=== PATIENT | male | born 1965 | race Caucasian/White ===

== ENCOUNTER 2024-04-07 21:11 | Inpatient (IN) | payer MEDICARE, OTHER, SELFPAY ==
[2024-04-07 21:41] LABS: Arterial Blood Carboxyhemoglob 1.3 % (0-1.5); Blood Gas THB 11.5 g/dl (12-18); Blood O2 Saturation 78.8 % (92-98.5)
[2024-04-07] MEDS ORDERED: CEFTRIAXONE 1000 MG/VIAL ONE (21:47)
[2024-04-07] MEDS ORDERED: DIAZEPAM 10 MG/2 ML INJ SYRINGE ONE (21:48)
[2024-04-07] MEDS ORDERED: NA CHLORIDE 0.9% 1,000 ML ONE (21:48)
--- NOTE | 2024-04-07 22:03 | RAD REPORT ---
EXAMINATION: ONE VIEW CHEST XR CLINICAL INDICATION: Male, 59 years old.COUGH TECHNIQUE: 1 View, AP supine, X-ray of the chest was performed. [id number]. COMPARISON: No prior exam. FINDINGS: Lungs and pleura: Clear lungs. No effusion. Heart and mediastinum: Normal heart size. Unremarkable mediastinal contours. Osseous structures: No acute abnormality. Tubes/lines: Reconstruction plate at the right clavicle. Other: None. IMPRESSION: No acute intrathoracic abnormality.
[2024-04-07 22:04] LABS: PT Prothrombin Time 9.7 SECONDS (9.4-12.5); PTT, Activated Partial Thromb 31.5 SECONDS (24.3-36.9); Protime INR 0.86
[2024-04-07 22:08] LABS: Absolute Basophils 0.1 K/uL (0-0.5); Absolute Lymphocytes (CBC) 0.8 K/uL (0.7-4.9); Absolute Monocytes 0.4 K/uL (0.1-1.3); Absolute Neutrophil 6.8 K/uL (1.8-8.0); Basophils % 0.9 % (0-1.3); Hematocrit 38.6 % (39.6-49.0); Hemoglobin 12.5 g/dL (13.6-17.9); MCH 32.3 pg (27.0-35.0); MCHC 32.5 g/dL (32.0-36.0); MCV 99.3 fL (80-100); MPV 7.4 fL (7.6-11.3); Monocytes % 5.3 % (3.3-12.3); Neutrophils % 83.8 % (41.7-73.7); Nucleated Red Blood Cells % 0.1 % (0-0); Platelets 566 thou/uL (152-406); RBC Red Blood Cell Count 3.88 M/uL (4.33-5.43); Red Cell Distribution Width 12.9 % (12.1-15.2)
[2024-04-07 22:23] LABS: ALT/SGPT 23 U/L (16-61); Albumin 3.5 g/dL (3.4-5.0); Albumin/Globulin Ratio 0.8 (1.1-1.8); Alkaline Phosphatase 215 U/L (45-117); Anion Gap 34.3 mEq/L (5.0-15.0); BUN Blood Urea Nitrogen 35 mg/dL (7-18); Bilirubin Total 0.6 mg/dL (0.2-1.0); Globulin 4.3 g/dL (2.3-3.5); Glomerular Filtration Rate 53 ml/min (=/>90); Glucose Level 778 mg/dL (74-106); Potassium 5.3 mEq/L (3.5-5.1); Protein, Total 7.8 g/dL (6.4-8.2); Sodium Level 126 mEq/L (136-145)
[2024-04-07 22:24] LABS: AST/SGOT < 10 U/L (15-37); BETA HYDROXYBUTYRATE > 4.50 mmol/L (0.02-0.27)
[2024-04-07 22:26] LABS: Bicarbonate 8 mEq/L (21-32)
[2024-04-07] MEDS ORDERED: INSULIN REGULAR (HUMAN) 100 UNIT/ML ONE (22:44)
[2024-04-07] MEDS ORDERED: NA CHLORIDE 0.9% 100 ML ONE (22:45)
--- NOTE | 2024-04-07 23:04 | ER ---
Nurse's Notes [facility] Name: Yung Valdes Age: 59 yrs Sex: Male : 1965 Arrival Date: 04/07/2024 Time: 21:11 Bed 6 Private MD: Diagnosis: Type 1 diabetes mellitus with ketoacidosis;Pseudohyponatremia;Acute Kidney Injury, Anemia, Hyperkalemia Presentation: 04/07 21:11 Chief complaint: EMS states: FELL TODAY GETTING OUT THE SHOWER WITH LOC. GENERALIZED jj7 WEAKINESS AND HIGH BLOOD SUGAR. PT DID IV METH 2 DAYS AGO AND HAS NOT EATEN IN 2 DAYS. TOOK HIS 20 UNIT OF INSULIN THIS MORNING. BLOOD SUGAR OVER 600. Coronavirus screen: At this time, the client does not indicate any symptoms associated with coronavirus-19. Ebola Screen: No symptoms or risks identified at this time. Initial Sepsis Screen: Does the patient meet any 2 criteria? HR > 90 bpm. Yes Does the patient have a suspected source of infection? No. Patient's initial sepsis screen is negative. Risk Assessment: Do you want to hurt yourself or someone else? Patient reports no desire to harm self or others. Onset of symptoms was April 07, 2024. Care prior to arrival: Medication(s) given: Normal saline infusion, 500 mL, IV initiated. 18 GA, in the left in the right antecubital area, Glucose check: 600. 21:11 Method Of Arrival: EMS: [place] [id number] 21:11 Acuity: GAVI 3 jj7 Triage Assessment: 21:11 General: Appears in no apparent distress. uncomfortable, ill, emaciated, Behavior is jj7 calm, cooperative, appropriate for age. Pain: Complains of pain in ALL OVER BODY ACHES. Neuro: Reports weakness. Cardiovascular: Rhythm is sinus tachycardia. GI: Reports DECREASED APPETITE. Historical: - Allergies: 21:28 PENICILLINS; jj7 - PMHx: 21:28 Diabetes mellitus; jj7 - PSHx: 21:28 None; jj7 - Infectious Disease History:: Denies. - Social history:: Smoking status: Patient denies any tobacco usage or history of. Patient uses alcohol, weekly. street drugs, Methamphetamine (Meth) IV drugs, METH. Screenin:11 [facility] ED Fall Risk Assessment (Adult) History of falling in the last 3 months, [facility] including since admission Yes- fall prone (multiple falls) (3 pts) Confusion or Disorientation No (0 pts) Intoxicated or Sedated No (0 pts) Impaired Gait No (0 pts) Mobility Assist Device Used No (0 pt) Altered Elimination No (0 pt) Score/Fall Risk Level 3 or more points = High Risk Oriented to surroundings, Maintained a safe environment, Educated pt \T\ family on fall prevention, incl call for assistance when getting out of bed, Assessed \T\ reinforced patient's understanding of fall precautions. Abuse screen: Denies threats or abuse. Nutritional screening: Tuberculosis screening: No symptoms or risk factors identified. Assessment: 21:11 Reassessment: SEE TRIAGE ASSESSMENT. j7 22:00 Reassessment: pt is sleeping. no distress noted Patient states symptoms have improved. j7 23:00 Reassessment: No changes from previously documented assessment. j7 04/08 00:00 Reassessment: No changes from previously documented assessment. j7 01:00 Reassessment: No changes from previously documented assessment. j7 02:10 Reassessment: No changes from previously documented assessment. [facility] Vital Signs: 04/07 21:11 BP 167 / 97; Pulse 116; Resp 23; Temp 97.6; Pulse Ox 100% ; Weight 46.27 kg; Height 5 [facility] ft. 8 in. ; Pain 8/10; 21:57 BP 135 / 72; Pulse 116; Resp 19; Pulse Ox 99% ; j7 22:49 BP 136 / 82; Pulse 111; Resp 17; Pulse Ox 100% ; j7 23:30 BP 137 / 92; Pulse 112; Resp 17; Pulse Ox 100% ; j7 04/08 00:30 BP 162 / 94; Pulse 115; Resp 17; Pulse Ox 98% ; j7 02:00 BP 132 / 81; Pulse 112; Resp 17; Pulse Ox 98% ; j7 04/07 21:11 Body Mass Index 15.51 (46.27 kg, 172.72 cm) [facility] 04/07 21:11 Pain Scale: Adult [facility] ED Course: 04/07 21:11 Patient arrived in ED. rv1 21:11 Arm band placed on right wrist. Patient placed in an exam room, on a stretcher, on jj7 cat and dog bather. 21:11 Patient has correct armband on for positive identification. Allergy band placed. Bed in jj7 low position. Call light in reach. Side rails up X2. Provided Education on: USE OF CALL IZQUIERDO. Warm blanket given. 21:11 Maintain EMS IV. Dressing intact. Good blood return noted. Site clean \T\ dry. Gauge \T\ jj 7 site: 18G TO RIGHT AC. 18G TO LEFT FOREARM. Flushed with 10 mL NS. 21:16 Kodak Nicolas MD is Attending Physician. ec2 21:18 Alicia Soler RN is Primary Nurse. jj7 21:26 Triage completed. jj7 21:37 Inserted saline lock: 20 gauge in left antecubital area, using aseptic technique. Blood sa1 collected. Flushed with 10 mL NS. 21:38 First set of blood cultures drawn by ED staff. jj7 21:51 Blood Culture Adult (2) Sent. jj7 21:51 CBC with Diff Sent. jj7 21:51 CMP Sent. jj7 21:51 Lactate w/ 2H reflex if indic. Sent. jj7 21:51 Protime (+inr) Sent. jj7 21:51 Ptt, Activated Sent. jj7 21:53 Second set of blood cultures drawn by ED staff. jj7 21:57 Chest Single View XRAY In Process Unspecified. EDMS 21:59 Blood Culture Adult (2) Sent. jj7 21:59 CBC with Diff Sent. jj7 21:59 CMP Sent. jj7 21:59 Lactate w/ 2H reflex if indic. Sent. jj7 21:59 Protime (+inr) Sent. jj7 21:59 Ptt, Activated Sent. jj7 22:00 BHB Sent. jj7 23:03 Jered Mederos MD is Hospitalizing Provider. ec2 04/08 00:42 Cleaned of incontinence. Linen changed. jj7 00:43 condom cath applied. jj7 02:24 Patient admitted, IV remains in place. jj7 02:24 No provider procedures requiring assistance completed. jj7 Administered Medications: 04/07 21:59 Drug: NS 0.9% IV (30 ml/kg) 30 ml/kg IV at bolus once; Sepsis Protocol; to be given as jj7 a bolus over 90 minutes Route: IV; Rate: bolus; Site: left upper arm; 22:33 Follow up: Response: No adverse reaction; IV Status: Completed infusion; IV Intake: bm8 1340ml 21:59 Drug: Rocephin IV 1 grams IV at calculated rate once; Given slow IV push per pharmacy j7 instructions Route: IV; Rate: calculated rate; Site: left upper arm; 22:32 Follow up: Response: No adverse reaction; IV Status: Completed infusion; IV Intake: [id number] 22:00 Drug: Diazepam IVP 10 mg IVP once Route: IVP; Site: left upper arm; j 22:32 Follow up: Response: No adverse reaction bm8 22:55 Drug: Insulin Drip - (Insulin Regular Human IVP 100 units, NS 0.9% IV 100 ml) IV at j calculated rate continuous; Standard concentration 1unit/ml; Dose for DKA is 0.1 units/kg/hr {Co-Signature: 8 (Cornelio Godfrey RN).} Route: IV; Rate: calculated rate; Site: left upper arm; 04/08 03:41 Follow up: Response: No adverse reaction; IV Status: Infusion continued upon admission bm8 Medication: 04/07 21:11 VIS not applicable for this client. j7 Point of Care Testing: Blood Glucose: 04/08 02:35 Blood Glucose: 390 mg/dL; bm8 Ranges: Intake: 04/07 22:32 IV: 10ml; Total: 10ml. bm8 22:33 IV: 1340ml; Total: 1350ml. bm8 Outcome: 23:03 Decision to Hospitalize by Provider. ec2 04/08 02:24 Admitted to ICU accompanied by nurse, via stretcher, room 1, Report called to KJ stratton 03:40 Patient left the ED. bm8 03:40 Condition: good jjAlisha Signatures: Dispatcher [employer] Alicia Royal RN RN jj7 Lea Souza rv1 Kodak Nicolas MD MD ec2 Cornelio Godfrey, RN RN [email or web address] [facility] Cornelio Godfrey RN mague Corrections: (The following items were deleted from the chart) 00:22 04/07 22:00 Reassessment: No changes from previously documented assessment. jj7 jj7 04/08 02:15 02:14 BP 132 / 181; Pulse 112bpm; Resp 17bpm; Pulse Ox 98%; jj7 jj7 03:50 02:00 BP 132 / 181; Pulse 112bpm; Resp 17bpm; Pulse Ox 98%; jj7 jj7
--- NOTE | 2024-04-07 23:04 | EDPHYS ---
Physician Documentation [facility] Name: Yung Valdes Age: 59 yrs Sex: Male : 1965 Arrival Date: 04/07/2024 Time: 21:11 Bed 6 Private MD: ED Physician Kodak Nicolas HPI: 04/07 21:43 This 59 yrs old Male presents to ER via EMS with complaints of High Blood ec2 Sugar. 21:43 Patient with history of methamphetamine abuse arrives today with hyperglycemia and ec2 feeling unwell. Called EMS with high blood sugars. Reports that he does take medications however uses meth and passes out and does not take it regularly. No fevers or chills, no cough and cold symptoms.. Historical: - Allergies: 21:28 PENICILLINS; j - PMHx: 21:28 Diabetes mellitus; j7 - PSHx: 21:28 None; jj7 - Infectious Disease History:: Denies. - Social history:: Smoking status: Patient denies any tobacco usage or history of. Patient uses alcohol, weekly. street drugs, Methamphetamine (Meth) IV drugs, METH. ROS: 21:43 Constitutional: as per hpi ec2 Exam: 21:43 Constitutional: GEN: NAD Head: atraumatic Eyes: EOMI Ears: External ears are ec2 normal. CV: Tachycardia LUNGS: Mild tachypnea ABD: non-distended SKIN: no evidence of rashes MSK: no evidence of trauma Vital Signs: 21:11 BP 167 / 97; Pulse 116; Resp 23; Temp 97.6; Pulse Ox 100% ; Weight 46.27 kg; Height 5 jj7 ft. 8 in. ; Pain 8/10; 21:57 BP 135 / 72; Pulse 116; Resp 19; Pulse Ox 99% ; j7 22:49 BP 136 / 82; Pulse 111; Resp 17; Pulse Ox 100% ; j7 23:30 BP 137 / 92; Pulse 112; Resp 17; Pulse Ox 100% ; j7 04/08 00:30 BP 162 / 94; Pulse 115; Resp 17; Pulse Ox 98% ; j7 02:00 BP 132 / 81; Pulse 112; Resp 17; Pulse Ox 98% ; 7 04/07 21:11 Body Mass Index 15.51 (46.27 kg, 172.72 cm) j7 04/07 21:11 Pain Scale: Adult jj7 MDM: 04/07 21:16 Medical Screening Exam initiated ec2 21:37 ED course: EKG independently reviewed and interpreted by me, shows sinus tachycardia, ec2 rate 119, no acute ST segment elevations, intervals are nonactionable.. 21:37 ED course: Venous blood gas obtained, shows acidosis with a pH of 7.17.. ec2 21:43 Data reviewed: vital signs. ED course: Patient arrives today for hyperglycemia. ec2 Examination remarkable for nontoxic individual who is slightly tachycardic and slightly tachypneic. Will obtain a septic workup, empirically treat with ceftriaxone. Differential includes medication noncompliance, electrolyte disturbances, anemia, dehydration.. 22:39 ED course: CBC shows minimal anemia. Metabolic profile shows marked hyperglycemia with ec2 a sugar of 778, pseudohyponatremia noted, significant anion gap at 34. Will start the patient on insulin drip.. 23:03 ED course: Will admit for DKA. Discussed with hospitalist, pending admission. ec2 11 21:17 Order name: Blood Culture Adult (2) ec2 04/07 21:17 Order name: CBC with Diff; Complete Time: 22:39 ec2 04/07 21:17 Order name: CMP; Complete Time: 22:39 ec2 04/07 21:17 Order name: Lactate w/ 2H reflex if indic.; Complete Time: 22:39 ec2 04/07 21:17 Order name: Protime (+inr); Complete Time: 22:39 ec2 04/07 21:17 Order name: Ptt, Activated; Complete Time: 22:39 ec2 04/07 21:17 Order name: Urinalysis w/ reflexes ec2 04/07 21:17 Order name: ABG; Complete Time: 22:39 ec2 04/07 21:17 Order name: BHB; Complete Time: 22:39 ec2 04/07 21:56 Order name: Glucose, Ancillary Testing; Complete Time: 22:39 EDMS 04/07 23:48 Order name: Urinalysis w/ reflexes EDMS 04/07 23:48 Order name: CBC with Automated Diff EDMS 04/07 23:48 Order name: CBC with Automated Diff EDMS 04/07 23:48 Order name: Comprehensive Metabolic Panel EDMS 04/07 23:48 Order name: Comprehensive Metabolic Panel [facility] 04/07 23:48 Order name: Troponin High Sensitivity [facility] 04/07 23:48 Order name: Troponin High Sensitivity [facility] 04/07 23:48 Order name: Troponin High Sensitivity [facility] 04/07 23:48 Order name: Troponin High Sensitivity [facility] 04/07 23:51 Order name: Basic Metabolic Panel [facility] 04/07 23:51 Order name: Basic Metabolic Panel [facility] 04/07 23:51 Order name: Basic Metabolic Panel [facility] 04/07 23:51 Order name: Basic Metabolic Panel [facility] 04/08 00:27 Order name: Ghost Lactate-NO COLLECT Timer [facility] 04/08 01:30 Order name: Lactate Sepsis 2 HR Follow-up [facility] 04/08 02:41 Order name: Glucose, Ancillary Testing [facility] 04/08 03:37 Order name: Glucose, Ancillary Testing [facility] 04/07 21:17 Order name: Chest Single View XRAY; Complete Time: 22:39 ec2 04/07 21:17 Order name: Accucheck; Complete Time: 21:50 ec2 04/07 21:17 Order name: Cardiac monitoring; Complete Time: 21:20 ec2 04/07 21:17 Order name: EKG - Nurse/Tech; Complete Time: 21:59 ec2 04/07 21:17 Order name: IV Saline Lock - Large Bore; Complete Time: 21:51 ec2 04/07 21:17 Order name: Labs collected and sent; Complete Time: 21:51 ec2 04/07 21:17 Order name: O2 Per Protocol; Complete Time: 21:51 ec2 04/07 21:17 Order name: O2 Sat Monitoring; Complete Time: 21:51 ec2 04/07 21:17 Order name: Vital Signs; Complete Time: 21:51 ec2 Administered Medications: 21:59 Drug: NS 0.9% IV (30 ml/kg) 30 ml/kg IV at bolus once; Sepsis Protocol; to be given as jj7 a bolus over 90 minutes Route: IV; Rate: bolus; Site: left upper arm; 22:33 Follow up: Response: No adverse reaction; IV Status: Completed infusion; IV Intake: bm8 1340ml 21:59 Drug: Rocephin IV 1 grams IV at calculated rate once; Given slow IV push per pharmacy jj7 instructions Route: IV; Rate: calculated rate; Site: left upper arm; 22:32 Follow up: Response: No adverse reaction; IV Status: Completed infusion; IV Intake: [id number] 22:00 Drug: Diazepam IVP 10 mg IVP once Route: IVP; Site: left upper arm; jj7 22:32 Follow up: Response: No adverse reaction bm8 22:55 Drug: Insulin Drip - (Insulin Regular Human IVP 100 units, NS 0.9% IV 100 ml) IV at [facility] calculated rate continuous; Standard concentration 1unit/ml; Dose for DKA is 0.1 units/kg/hr {Co-Signature: bm8 (Cornelio Godfrey RN).} Route: IV; Rate: calculated rate; Site: left upper arm; 04/08 03:41 Follow up: Response: No adverse reaction; IV Status: Infusion continued upon admission bm8 Point of Care Testing: Blood Glucose: 02:35 Blood Glucose: 390 mg/dL; bm8 Ranges: Critical Glucose Levels:Adult <50 mg/dl or >400 mg/dl <40 mg/dl or >180 mg/dl Disposition Summary: 04/07/24 23:03 Hospitalization Ordered Notes: Hospitalization Status: Inpatient Admission ec2 Provider: Jered Mederos ec2 Location: Intensive Care Unit ec2 Condition: Fair ec2 Problem: an acute exacerbation ec2 Symptoms: have improved ec2 Bed/Room Type: Standard ec2 Room Assignment: 1-(04/08/24 02:06) rv1 Diagnosis - Type 1 diabetes mellitus with ketoacidosis ec2 - Pseudohyponatremia ec2 - Acute Kidney Injury, Anemia, Hyperkalemia ec2 Forms: - Medication Reconciliation Form ec2 - SBAR form ec2 - Leadership Thank You Letter ec2 Critical care time excluding procedures: 04/07 23:03 Critical care time: Bedside Care: 30 minutes, Consultation: 5 minutes. Total time: 35 ec2 minutes Signatures: Dispatcher [employer] Alicia Royal RN RN jj7 Lea Souza rv1 Kodak Nicolas MD MD ec2 Cornelio Godfrey RN bm8 Cornelio Godfrey RN bm8 Corrections: (The following items were deleted from the chart) 21:17 21:17 BLOOD CULTURE*+BA.LAB.BRZ ordered. NERI HE 21: 21:17 CBC+H.LAB.BRZ ordered. EDMS EDMS 21:17 21:17 COMPREHENSIVE METABOLIC PANEL+C.LAB.BRZ ordered. EDMS EDMS 21: 21:17 LACTATE+C.LAB.BRZ ordered. EDMS EDMS 21:17 21:17 PROTIME (+INR)+COAG.LAB.BRZ ordered. EDMS EDMS 21:17 21:17 PTT, ACTIVATED+COAG.LAB.BRZ ordered. EDMS EDMS 21:17 21:17 Urinalysis+U.LAB.BRZ ordered. EDMS EDMS 21:17 21:17 BETA HYDROXYBUTYRATE+C.LAB.BRZ ordered. EDMS EDMS 21:17 21:17 Chest Single View+RAD.RAD.BRZ ordered. EDMS EDMS 21:17 21:17 Arterial Blood Gas+RC.LAB.BRZ ordered. EDMS EDMS 04/08 02:06 04/07 23:03 ec2 rv1
--- NOTE | 2024-04-07 23:42 | P.HP ---
Certification for Inpatient Patient admitted to: Inpatient With expected LOS: >2 Midnights Practitioner: I am a practitioner with admitting privileges, knowledge of patient current condition, hospital course, and medical plan of care. Services: Services provided to patient in accordance with Admission requirements found in Title 42 Section 412.3 of the Code of Federal Regulations Patient History Date of Service: 04/08/24 Reason for admission: DKA History of Present Illness: 59 yrs old Male with past medical history of diabetes, history of substance abuse with methamphetamine brought to ER with high blood sugar. Patient is a poor historian and most of the history is obtained from chart review and also talking to the ER physician. He was not feeling well today. And he passed out and call 911 because of high blood sugar. Denies any fever or chills. No nausea vomiting or diarrhea. No chest pain or shortness of breath. Patient was assessed in the ER and was found to be in DKA and is admitted for further management of diabetic ketoacidosis Allergies Penicillins Allergy (Unknown, Verified 04/08/24 03:30) Itching/Hives/Rash - Past Medical/Surgical History Past Medical History: Reviewed- Non-Contributory -: DM Past Surgical History: Reviewed- Non-Contributory - Family History Family History: Reviewed- Non-Contributory - Social History Smoking Status: Current some day smoker Review of Systems 10-point ROS is otherwise unremarkable Physical Examination - Vital Signs Temperature: 97.2 F Blood Pressure: 156/78 Pulse: 82 Respirations: 20 Pulse Ox (%): 94 - Physical Exam General: Alert, Oriented x3, Cachectic, Disheveled, Mild distress HEENT: Atraumatic, Normocephalic Neck: Supple, No Thyromegaly Respiratory: Clear to auscultation bilaterally Cardiovascular: Regular rate/rhythm, Normal S1 S2 Capillary refill: <2 Seconds Gastrointestinal: Soft and benign, W/out hepatosplenomegaly Musculoskeletal: No clubbing, No swelling Integumentary: No rashes Neurological: Other (Alert, Awake ) Lymphatics: No axilla or inguinal lymphadenopathy - Studies Laboratory Data (last 24 hrs) 04/07/24 04/07/24 04/07/24 21:38 21:38 21:38 WBC 8.10 Hgb 12.5 L Hct 38.6 L Plt Count 566 H PT 9.7 INR 0.86 APTT 31.5 Sodium 126 L Potassium 5.3 H BUN 35 H Creatinine 1.53 H Glucose 778 H* Total Bilirubin 0.6 AST < 10 L ALT 23 Alkaline Phosphatase 215 H Assessment and Plan - Plan Diabetic ketoacidosis Admit to ICU Started on insulin drip Anion gap monitored ABG findings noted IV hydration aggressively Oxygen supplementation Will monitor BMP every 4 hours Accu-Chek q. hourly Anion gap at the time of admission is 34.3 Will monitor anion gap Electrolytes monitor and replace accordingly ABG shows 7.17/18.6/52.3 Hyperkalemia Aggressive hydration insulin drip Will monitor BMP every 4 hours Monitor under telemetry Acute kidney injury Renal parameters monitored IV hydration Electrolytes monitor and replace accordingly Lactic acidosis Started on antibiotic empirically Will get a UA and cultures Substance abuse Patient has a history of methamphetamine use Will get a UDS GI/DVT prophylaxis Advanced directive full code Discharge Plan: Home Plan to discharge in: 48 Hours - Advance Directives Does patient have a Living Will: No Does patient have a Durable POA for Healthcare: No - Code Status/Comfort Care Code Status: Full Code Time Spent Managing Pts Care (In Minutes): 48
[2024-04-07] MEDS ORDERED: ACETAMINOPHEN 325 MG TABLET PO PRN (23:43)
[2024-04-07] MEDS ORDERED: ONDANSETRON 4 MG/2 ML VIAL IV PRN (23:43)
[2024-04-07] MEDS: D5 0.45 NS 1,000 ML IV SCH (23:45)
[2024-04-08] MEDS: NA CHLORIDE 0.9% 0 ML ONE (03:27)
[2024-04-08] MEDS: NACHLORIDE 0.45% 1,000 ML IV ONE (03:33)
[2024-04-08] MEDS: NACHLORIDE 0.45% 1,000 ML IV SCH (03:45)
[2024-04-08] MEDS: Levofloxacin500mg IV 500 MG/100 ML BAG IV ONE (04:00)
[2024-04-08] MEDS ORDERED: D50W 25 GM/50 ML SYRINGE IV PRN (04:25)
[2024-04-08] MEDS ORDERED: GLUCAGON 1 MG/VIAL IM PRN (04:25)
[2024-04-08 04:27] LABS: Anion Gap 16.5 mEq/L (5.0-15.0)
[2024-04-08 04:32] LABS: Potassium 5.5 mEq/L (3.5-5.1)
[2024-04-08] MEDS ORDERED: D10W 125 ML IV PRN ×2 (04:32→14:15)
[2024-04-08] MEDS ORDERED: INSULIN REGULAR, HUMAN 100 UNIT in NA CHLORIDE 0.9% 100 ML IV SCH (05:00)
[2024-04-08] MEDS: Levofloxacin500mg IV 500 MG/100 ML BAG IV SCH (05:20)
--- NOTE | 2024-04-08 06:55 | P.PN ---
Date of Service: 04/08/24 Subjective: slightly more awake/alert. orientedx2 remains somnolent, sleeping in bed, arousable in sinus tachycardia 100-110s breathing okay on room air ROS: unable to fully obtain Physical Exam: GEN: Somnolent, arousable, cachectic HEENT: Normal conjunctiva, sclera anicteric CV: Sinus Tachycardia, no edema Pulm: Nonlabored respirations on room air, clear bilaterally ABD: soft, nontender, nondistended Problem List: Diabetic Ketoacidosis Syncope TAMEKA Hyperkalemia Lactic acidosis,resolved Hx Substance abuse Diabetic Ketoacidosis Syncope on admission, presents with decreased responsiveness, generalized weakness. BS > 600 at home prior to admission. Reportedly fell getting out of the shower with LOC prior to admission per ER notes. Did meth ~2 days ago and hasn't eaten anything in [address] head given mentation. No imaging in ED besides CXR. Has history of noncompliance with meds per ER notes. Passes out after doing meth in past. remains lethargic; suspect secondary to 10 mg diazepam given in ED overnight and DKA Took 20 units of insulin prior to arrival. Given IVF, IV rocephin, and started on insulin drip in ED continue insulin drip; wean as tolerated continue IV fluids anion gap improving Can p.o. challenge once gap is closed and consider transitioning off drip TAMEKA, prerenal Hyperkalemia Creatinine 1.53, Potassium 5.3 on admission Likely prerenal, should improve as DKA corrects and hydration on insulin drip, continue IVF continue to monitor renal function Monitor and replete electrolytes as needed Lactic acidosis, resolved likely related to DKA. Resolved No clear infectious source/suspicion, however unable to get an accurate history from patient currently Started on empiric abx in ED given elevated lactate, tachycardia, tachypnea CXR negative continue IV levaquin for now check UA/blood cultures afebrile, no leukocytosis Hx Substance abuse Reportedly did Methamphetamines ~2 days prior to admission check tox screen cessation advised Monitoring for withdrawal VTE: Lovenox Code: Full Dispo: Home, 2 to 3 days DKA resolves, tolerating diet Continue ICU level of care Time Spent Managing Pts Care (In Minutes): 55
[2024-04-08] MEDS: ENOXAPARIN 40 MG/0.4 ML SQ SCH (08:34)
[2024-04-08 08:38] LABS: Absolute Lymphocytes (CBC) 1.6 K/uL (0.7-4.9); Absolute Neutrophil 3.8 K/uL (1.8-8.0); Basophils % 0.5 % (0-1.3); Eosinophils % 0.6 % (0-4.4); Hematocrit 31.3 % (39.6-49.0); Hemoglobin 10.5 g/dL (13.6-17.9); Lymphocytes % 24.3 % (15.3-44.8); MCH 31.6 pg (27.0-35.0); MCHC 33.5 g/dL (32.0-36.0); MCV 94.3 fL (80-100); MPV 7.4 fL (7.6-11.3); Monocytes % 15.9 % (3.3-12.3); Neutrophils % 58.7 % (41.7-73.7); Nucleated Red Blood Cells % 0.1 % (0-0); Platelets 418 thou/uL (152-406); RBC Red Blood Cell Count 3.32 M/uL (4.33-5.43); Red Cell Distribution Width 12.7 % (12.1-15.2)
[2024-04-08 08:53] LABS: ALT/SGPT 18 U/L (16-61); Albumin 2.8 g/dL (3.4-5.0); Albumin/Globulin Ratio 0.8 (1.1-1.8); Alkaline Phosphatase 160 U/L (45-117); Anion Gap 11.1 mEq/L (5.0-15.0); BUN Blood Urea Nitrogen 26 mg/dL (7-18); Bicarbonate 25 mEq/L (21-32); Bilirubin Total 0.4 mg/dL (0.2-1.0); Globulin 3.6 g/dL (2.3-3.5); Glomerular Filtration Rate 80 ml/min (=/>90); Glucose Level 200 mg/dL (74-106); Potassium 4.1 mEq/L (3.5-5.1); Protein, Total 6.4 g/dL (6.4-8.2); Sodium Level 135 mEq/L (136-145); Troponin High Sensitivity 7.7 pg/mL (<58.9)
[2024-04-08 09:04] LABS: AST/SGOT < 10 U/L (15-37)
--- NOTE | 2024-04-08 10:18 | RAD REPORT ---
EXAM: CT Head Brain Wo Cont HISTORY: forgetfulness COMPARISON: None available TECHNIQUE: Multiple contiguous axial images were obtained for a CT of the brain without contrast. Sag ittal and coronal reformats were performed. One or more of the following dose reduction techniques were used: Automated exposure control, adjus tment of the mA and kV according to patient size, and iterative reconstruction. Unless otherwise specified, incidental findings do not require dedicated imaging follow-up. FINDINGS: No evidence of hydrocephalus, intracranial hemorrhage, or extra-axial fluid collection. The brain is normal in morphology. The calvarium is intact. The visualized paranasal sinuses and mastoid air cells are essentially clear . IMPRESSION: No evidence of acute intracranial abnormality.
[2024-04-08 10:24] LABS: Sqamous Epithelial None Seen /HPF (None Seen); Urine Bacteria None Seen /HPF (<20); Urine Bilirubin NEGATIVE (Negative); Urine Blood Negative (Negative); Urine Clarity Clear (Clear); Urine Color Colorless (Yellow); Urine Culture Reflex Order NOT NEEDED; Urine Glucose 4+ (Over) (Negative); Urine Ketones 3+ (Negative); Urine Microscopic Reflex YN ORDER UMIC; Urine Mucus Slight /HPF (None Seen); Urine Nitrite NEGATIVE (Negative); Urine Protein TRACE (Negative); Urine RBC <5 /HPF (None Seen); Urine Urobilinogen Normal (Normal); Urine WBC None Seen /HPF (<5); Urine pH 5.5 (5.0-7.0)
[2024-04-08 10:30] LABS: Barbiturates NEGATIVE (NEGATIVE); Benzodiazepines POSITIVE (NEGATIVE); Cocaine NEGATIVE (NEGATIVE); METHAMPHETAM POSITIVE (NEGATIVE); Methadone NEGATIVE (NEGATIVE); Opiates NEGATIVE (NEGATIVE); Phencyclidine NEGATIVE (NEGATIVE); THC Cannibis NEGATIVE (NEGATIVE)
[2024-04-08] MEDS: INSULIN GLARGINE 100 UNIT/ML SQ ONE (11:32)
[2024-04-08] MEDS: LOSARTAN POTASSIUM 50 MG TABLET PO SCH (12:06)
[2024-04-08 12:17] LABS: Anion Gap 9.9 mEq/L (5.0-15.0); Potassium 3.9 mEq/L (3.5-5.1)
--- NOTE | 2024-04-08 12:39 | EKG ---
Test Date: 2024-04-07 Test Time: 21:27:30 Display Designer Outside: ARIANA MEASUREMENT RESULTS: Intervals: Rate: 119 MS: 146 QRSD: 80 QT: 316 QTc: 444 [place]: P: 66 MS: 146 QRS: 80 T: 77 INTERPRETIVE STATEMENTS: Sinus tachycardia Septal infarct, age undetermined Abnormal ECG No previous ECG available for comparison Electronically Signed On 04-08-24 12:38:34 LOCOMOTIVE CRANE OPERATOR by Kvng Parra
[2024-04-08] MEDS: INSULIN REGULAR (HUMAN) 100 UNIT/ML SQ SCH (17:04)
[2024-04-08] MEDS: NA CHLORIDE 0.9% 1,000 ML IV SCH (18:07)
[2024-04-08 20:00] LABS: Anion Gap 6.8 mEq/L (5.0-15.0); Potassium 3.8 mEq/L (3.5-5.1)
[2024-04-09] MEDS: Levofloxacin 250mg IV 250 MG/50 ML BAG IV SCH (04:00)
[2024-04-09 06:28] LABS: Absolute Basophils 0.1 K/uL (0-0.5); Absolute Lymphocytes (CBC) 1.7 K/uL (0.7-4.9); Absolute Monocytes 0.4 K/uL (0.1-1.3); Absolute Neutrophil 3.5 K/uL (1.8-8.0); Basophils % 0.9 % (0-1.3); Eosinophils % 0.9 % (0-4.4); Hematocrit 32.7 % (39.6-49.0); Hemoglobin 11.2 g/dL (13.6-17.9); MCH 32.2 pg (27.0-35.0); MCHC 34.3 g/dL (32.0-36.0); MCV 93.8 fL (80-100); MPV 7.4 fL (7.6-11.3); Monocytes % 7.5 % (3.3-12.3); Neutrophils % 60.7 % (41.7-73.7); Nucleated Red Blood Cells % 0.1 % (0-0); Platelets 472 thou/uL (152-406); RBC Red Blood Cell Count 3.49 M/uL (4.33-5.43); Red Cell Distribution Width 12.5 % (12.1-15.2)
[2024-04-09 06:31] LABS: Albumin 2.7 g/dL (3.4-5.0); Albumin/Globulin Ratio 0.8 (1.1-1.8); Anion Gap 6.6 mEq/L (5.0-15.0); Bilirubin Total 0.2 mg/dL (0.2-1.0); Globulin 3.2 g/dL (2.3-3.5); Potassium 3.6 mEq/L (3.5-5.1); Protein, Total 5.9 g/dL (6.4-8.2)
--- NOTE | 2024-04-09 07:44 | P.PN ---
Date of Service: 04/09/24 Subjective: Feeling better today more awake/alert. Strength, mentation improving no issues overnight HR improving; down to 90-100s recalls falling prior to hospitalization Trying to hard ice teas diet is regular alcohol use ROS: 10 point ROS as noted above, otherwise negative Physical Exam: GEN: Awake, Alert, Oriented x3, cachectic HEENT: Normal conjunctiva, sclera anicteric CV: Sinus tachycardia, no edema Pulm: Nonlabored respirations on room air, clear bilaterally ABD: soft, nontender, nondistended Problem List: Diabetic Ketoacidosis, resolved Syncope TAMEKA, prerenal; resolved Hyperkalemia; resolved Lactic acidosis,resolved Hx Substance abuse Diabetic Ketoacidosis, resolved Syncope on admission, presents with decreased responsiveness, generalized weakness. BS > 600 at home prior to admission. Reportedly fell getting out of the shower with LOC prior to admission per ER notes. Did meth ~2 days ago and hasn't eaten anything in [address] head negative for any acute findings Has history of noncompliance with meds per ER notes. Passes out after doing meth in past. suspect lethargy secondary diazepam / DKA. Fall secondary to DKA. Took 20 units of insulin prior to arrival. Given IVF, IV rocephin, and started on insulin drip in ED anion gap closed 04/08 morning s/p insulin drip; transitioned to Novolin 04/08 afternoon continue IV fluids Tolerating diabetic diet PT consult Downgrade from ICU today TAMEKA, prerenal; resolved Hyperkalemia; resolved Creatinine 1.53, Potassium 5.3 on admission prerenal. Improved as DKA resolved and with hydration continue to monitor renal function TAMEKA, hyperkalemia resolved Lactic acidosis, resolved likely related to DKA. Resolved No clear infectious source/suspicion Started on empiric abx in ED given elevated lactate, tachycardia, tachypnea DC antibiotics 04/09; no evidence of active infxn afebrile, no leukocytosis Hx Substance abuse cessation advised Monitoring for withdrawal VTE: Lovenox Code: Full Dispo: Home, 1-2 days Possible downgrade to floor later today Time Spent Managing Pts Care (In Minutes): 45
[2024-04-09] MEDS: POTASSIUM 25 MEQ EFFERV TAB PO ONE (08:08)
[2024-04-09] MEDS: Levofloxacin500mg IV 500 MG/100 ML BAG IV SCH (08:51)
[2024-04-09] MEDS: THIAMINE 200 MG/2 ML INJ IVP SCH (08:51)
[2024-04-09] MEDS ORDERED: INSULIN REGULAR (HUMAN) 100 UNIT/ML SQ SCH (16:44)
[2024-04-09] MEDS: INSULIN REGULAR (HUMAN) 100 UNIT/ML SQ SCH (17:00)
[2024-04-09] MEDS: GLUCERNA SHAKE 237 ML CAN PO SCH (21:00)
[2024-04-10 00:25] VITALS: BMI 17.4
[2024-04-10 05:57] LABS: Anion Gap 9.3 mEq/L (5.0-15.0); Potassium 4.3 mEq/L (3.5-5.1)
[2024-04-10] MEDS: THIAMINE HCL 100 MG TABLET PO SCH (08:43)
[2024-04-10] MEDS: INSULIN GLARGINE 100 UNIT/ML SQ SCH (08:53)
[2024-04-10] MEDS ORDERED: Levofloxacin 750mg IV 750 MG/150 ML BAG IV SCH (09:00)
[2024-04-10] MEDS ORDERED: THIAMINE HCL 100 MG TABLET PO SCH (09:00)
[2024-04-10 09:59] VITALS: O2SAT 99
--- NOTE | 2024-04-10 13:16 | P.PN ---
Subjective Date of Service: 04/10/24 Chief Complaint: DKA Patient denies any complaint today. His blood sugar readings significantly elevated. Patient is to undergo portion of food. He denies any diarrhea or nausea or vomiting. No recorded fever. Physical Examination - Vital Signs Temperature: 97.3 F Blood Pressure: 152/96 Pulse: 108 Respirations: 14 Pulse Ox (%): 96 Assessment And Plan - Plan Physical Exam: GEN: Awake, Alert, Oriented x3, cachectic HEENT: Anicteric sclera. CV: Regular rhythm, tachycardic, no edema Pulm: Nonlabored respirations on room air, clear to auscultation bilaterally ABD: soft, nontender, nondistended Musculoskeletal: No joint swelling or deformity. Problem List: Diabetic Ketoacidosis, resolved Syncope TAMEKA, prerenal; resolved Hyperkalemia; resolved Lactic acidosis,resolved Hx Substance abuse Plan: Diabetic Ketoacidosis, resolved Syncope with fall Acute metabolic encephalopathy CT head negative for any acute findings History of noncompliance with meds per ER notes. Passes out after doing meth in past. Lethargy secondary diazepam and DKA leading to fall Took 20 units of insulin prior to arrival. Status post IVF, IV rocephin, and insulin drip. anion gap closed 04/08 morning Insulin drip transition to insulin sliding scale. Long-acting basal insulin added today due to severe hyperglycemia. Continue to monitor fingerstick glucose and titrate basal insulin. Compliance to diabetic therapy reemphasized. PT TAMEKA, prerenal; resolved Hyperkalemia; resolved Creatinine 1.53, Potassium 5.3 on admission Etiology prerenal secondary to DKA. TAMEKA and hyperkalemia resolved Lactic acidosis, resolved likely related to DKA. Resolved No clear infectious source/suspicion Started on empiric abx in ED given elevated lactate, tachycardia, tachypnea Antibiotics later discontinue Patient has been afebrile with no leukocytosis Polysubstance abuse. cessation advised Monitoring for withdrawal. Increase activity as tolerated. VTE: Lovenox Code: Full Dispo: Home, 1-2 days Time Spent Managing Pts Care (In Minutes): 37
[2024-04-11 04:38] LABS: Absolute Basophils 0.1 K/uL (0-0.5); Absolute Eosinophils 0.2 K/uL (0-0.5); Absolute Lymphocytes (CBC) 2.1 K/uL (0.7-4.9); Absolute Monocytes 0.4 K/uL (0.1-1.3); Absolute Neutrophil 2.5 K/uL (1.8-8.0); Basophils % 1.1 % (0-1.3); Eosinophils % 3.5 % (0-4.4); Hematocrit 27.7 % (39.6-49.0); Hemoglobin 9.3 g/dL (13.6-17.9); Lymphocytes % 40.3 % (15.3-44.8); MCH 31.8 pg (27.0-35.0); MCHC 33.5 g/dL (32.0-36.0); MCV 95.1 fL (80-100); MPV 7.3 fL (7.6-11.3); Monocytes % 7.8 % (3.3-12.3); Neutrophils % 47.3 % (41.7-73.7); Platelets 431 thou/uL (152-406); RBC Red Blood Cell Count 2.91 M/uL (4.33-5.43); Red Cell Distribution Width 12.5 % (12.1-15.2)
[2024-04-11 04:57] LABS: Anion Gap 8.4 mEq/L (5.0-15.0); Potassium 4.4 mEq/L (3.5-5.1)
[2024-04-11] MEDS: INSULIN GLARGINE 100 UNIT/ML SQ ONE (10:47)
[2024-04-11 16:41] VITALS: BP 106/74; TEMP 98.1
--- NOTE | 2024-04-11 17:51 | P.DS ---
Admission Date: 04/07/24 Discharge Date: 04/13/24 Disposition: ROUTINE DISCHARGE Discharge Condition: FAIR Reason for Admission: DKA Hospital Course: Diagnosis Diabetic Ketoacidosis, resolved Syncope TAMEKA, prerenal; resolved Hyperkalemia; resolved Lactic acidosis,resolved Hx Substance abuse Underweight. Patient presented to ED with decreased responsiveness, generalized weakness secondary to diabetic ketoacidosis. Patient reports blood sugars greater than 600 at home prior to arrival. Patient was given IV fluids, and started on insulin drip in ED and had improvement of his symptoms. Anion gap closed less than 12 hours after starting insulin drip. Insulin drip was deescalated to Novolin and patient continued to improve. Patient able to tolerate regular diet on day of discharge without issues. Patient was feeling better, back to his normal self, ambulating, and ready for discharge. He was placed on long-acting insulin. Patient discharged with Lantus insulin 20 units daily which is close to his previous Novolin 70/30 dose. He was known to have an elevated lactate on admission associated with tachycardia, tachypnea. UA/blood cultures were obtained in ED. Urinalysis did not suggestive of UTI. Blood cultures have been without growth since 04/07. There was no clear infectious source, He was treated with empiric antibiotics as a precaution. Patient remained afebrile without leuckoytosis throughout hospitalization. No evidence of infection. No evidence to warrant further antibiotics. Vital Signs/Physical Exam: Temp Pulse Resp BP Pulse Ox 98.1 F 119 H 16 106/74 100 04/11/24 16:00 04/11/24 16:00 04/11/24 16:00 04/11/24 16:00 04/11/24 16:00 General: Alert, In no apparent distress, Oriented x3 HEENT: Mucous membr. moist/pink, Sclerae nonicteric Neck: Supple, JVD not distended Respiratory: Clear to auscultation bilaterally, Normal air movement Cardiovascular: No edema, Regular rate/rhythm, Normal S1 S2 Gastrointestinal: Normal bowel sounds, Soft and benign, Non-distended, No tenderness Musculoskeletal: No swelling Integumentary: No rashes, No cyanosis Neurological: Normal speech, Normal strength at 5/5 x4 extr, Cranial nerves 3-12 intact Lymphatics: No axilla or inguinal lymphadenopathy Laboratory Data at Discharge: WBC 5.30 thou/uL (4.3-10.9) 04/11/24 04:02 Hgb 9.3 g/dL (13.6-17.9) L 04/11/24 04:02 Hct 27.7 % (39.6-49.0) L 04/11/24 04:02 Plt Count 431 thou/uL (152-406) H 04/11/24 04:02 PT 9.7 SECONDS (9.4-12.5) 04/07/24 21:38 INR 0.86 04/07/24 21:38 APTT 31.5 SECONDS (24.3-36.9) 04/07/24 21:38 Sodium 135 mEq/L (136-145) L D 04/11/24 04:02 Potassium 4.4 mEq/L (3.5-5.1) 04/11/24 04:02 BUN 22 mg/dL (7-18) H 04/11/24 04:02 Creatinine 0.76 mg/dL (0.70-1.30) 04/11/24 04:02 Glucose 354 mg/dL (74-106) H 04/11/24 04:02 Magnesium 2.0 mg/dL (1.6-2.4) 04/10/24 05:14 Total Bilirubin 0.2 mg/dL (0.2-1.0) 04/09/24 05:19 AST 11 U/L (15-37) L 04/09/24 05:19 ALT 17 U/L (16-61) 04/09/24 05:19 Alkaline Phosphatase 150 U/L (45-117) H 04/09/24 05:19 Home Medications: Alcohol Antiseptic Pads [Alcohol Swabs] 1 each TP TID #100 unit 04/11/24 Blood Sugar Diagnostic [Blood Glucose Test Strip] 1 each MC TID #30 strip 04/11/24 Blood-Glucose Meter [Blood Glucose Monitoring] 1 each MC TID #1 kit 04/11/24 Glucerna Shake [Glucerna*] 237 ml PO BID #30 can 04/11/24 Insulin Detemir [Levemir Flexpen] 20 unit SQ DAILY #15 ml 04/11/24 Lancets 1 each MC TID #100 ea 04/11/24 Losartan Potassium [Cozaar*] 50 mg PO DAILY #30 tab 04/11/24 Pen Needle, Diabetic [Pen [place]] 1 each MC TID #1 box 04/11/24 Thiamine HCl [Vitamin B-1*] 100 mg PO DAILY #30 tab 04/11/24 New Medications: Alcohol Antiseptic Pads [Alcohol Swabs] 1 each TP TID #100 unit Blood-Glucose Meter [Blood Glucose Monitoring] 1 each MC TID #1 kit Blood Sugar Diagnostic [Blood Glucose Test Strip] 1 each MC TID #30 strip Losartan Potassium [Cozaar*] 50 mg PO DAILY #30 tab Glucerna Shake [Glucerna*] 237 ml PO BID #30 can Lancets 1 each MC TID #100 ea Insulin Detemir [Levemir Flexpen] 20 unit SQ DAILY #15 ml Pen Needle, Diabetic [Pen [place]] 1 each MC TID #1 box Thiamine HCl [Vitamin B-1*] 100 mg PO DAILY #30 tab Physician Discharge Instructions: Physician discharge instructions: Patient presented to ED with decreased responsiveness, generalized weakness secondary to diabetic ketoacidosis. Patient reports blood sugars greater than 600 at home prior to arrival. Patient was given IV fluids, and started on insulin drip in ED and had improvement of his symptoms. Anion gap closed less than 12 hours after starting insulin drip. Insulin drip was deescalated to Novolin and patient continued to improve. Patient able to tolerate regular diet on day of discharge without issues. Patient was feeling better, back to his normal self, ambulating, and ready for discharge. She was known to have an elevated lactate on admission associated with tachycardia, tachypnea. UA/blood cultures were obtained in ED. Urinalysis not suggestive of UTI. Blood cultures have been without growth since 04/07. Patient remained afebrile without leuckoytosis throughout hospitalization. No evidence of infection. No evidence of warrant further antibiotics. Medications: Follow up: PCP 3-5 days Please call to schedule / confirm appointments Diet: ADA Activity: Ad ventura Followup: Geovanni Ramirez DO [ACTIVE - CAN ADMIT] - 1-2 Weeks Time spent managing pt's care (in minutes): 38
[2024-04-12] MEDS ORDERED: INSULIN GLARGINE 100 UNIT/ML SQ SCH (09:00)
== END 2024-04-11 18:45 | disposition home or self-care (01) | DRG 637 ==
LOC: ER 21:11 → ERHOLD 23:43 → 3RD-ICU 04-08 02:45 → 2ND 04-10 17:52
PROVIDERS: ADMIT Family Medicine; ATTEND Internal Medicine
PROC: 4A033R1 Measurement of Arterial Saturation, Peripheral, Percutaneous Approach (ICD-10-PCS; principal; 2024-04-07)
DX: E10.10 Type 1 diabetes mellitus with ketoacidosis without coma (principal); E43 Unspecified severe protein-calorie malnutrition; G93.41 Metabolic encephalopathy; Z68.1 Body mass index [BMI] 19.9 or less, adult; N17.9 Acute kidney failure, unspecified; R64 Cachexia; D64.9 Anemia, unspecified; E87.5 Hyperkalemia; F17.200 Nicotine dependence, unspecified, uncomplicated; Z88.0 Allergy status to penicillin
CPT/HCPCS: 36415; 36600; 70450; 71045; 80048; 80053; 80307; 81001; 82010; 82805; 82947; 83605; 83735; 84484; 85025; 85610; 85730; 87040; 93005; 94760; 96365; 96366; 96367; 96368; 96375; 97116; 97161; 97530; 99285; J0696; J1650; J3360; J3411; J7030; J7799

== ENCOUNTER 2024-07-06 01:21 | Inpatient (IN) | payer MEDICARE, OTHER, SELFPAY ==
[2024-07-06] MEDS ORDERED: NA CHLORIDE 0.9% 2,000 ML ONE (01:54)
[2024-07-06 02:07] LABS: Absolute Basophils 0.1 K/uL (0-0.5); Absolute Lymphocytes (CBC) 0.8 K/uL (0.7-4.9); Absolute Monocytes 0.2 K/uL (0.1-1.3); Absolute Neutrophil 3.9 K/uL (1.8-8.0); Basophils % 1.1 % (0-1.3); Eosinophils % 0.1 % (0-4.4); Hematocrit 36.3 % (39.6-49.0); Hemoglobin 11.8 g/dL (13.6-17.9); Lymphocytes % 16.3 % (15.3-44.8); MCHC 32.6 g/dL (32.0-36.0); MCV 92.1 fL (80-100); MPV 7.7 fL (7.6-11.3); Monocytes % 4.6 % (3.3-12.3); Neutrophils % 77.9 % (41.7-73.7); Nucleated Red Blood Cells % 0.1 % (0-0); Platelets 463 thou/uL (152-406); RBC Red Blood Cell Count 3.94 M/uL (4.33-5.43); Red Cell Distribution Width 13.9 % (12.1-15.2)
[2024-07-06 02:18] LABS: Blood O2 Saturation 65.3 % (92-98.5)
[2024-07-06 02:19] LABS: Arterial Blood Carboxyhemoglob 1.1 % (0-1.5); Blood Gas Oxyhemoglobin 63.1 % (94-97); Blood Gas THB 12.2 g/dl (12-18)
[2024-07-06 02:31] LABS: ALT/SGPT 21 U/L (16-61); Albumin 3.3 g/dL (3.4-5.0); Alkaline Phosphatase 150 U/L (45-117); Anion Gap 22.8 mEq/L (5.0-15.0); BUN Blood Urea Nitrogen 23 mg/dL (7-18); Bicarbonate 20 mEq/L (21-32); Bilirubin Direct 0.2 mg/dL (0-0.2); Bilirubin Indirect, Calculated 0.3 mg/dL (0.2-0.8); Bilirubin Total 0.5 mg/dL (0.2-1.0); Globulin 3.3 g/dL (2.3-3.5); Glomerular Filtration Rate 72 ml/min (=/>90); Magnesium 1.9 mg/dL (1.6-2.4); Potassium 4.8 mEq/L (3.5-5.1); Protein, Total 6.6 g/dL (6.4-8.2); Sodium Level 131 mEq/L (136-145); Troponin High Sensitivity 4.4 pg/mL (<58.9)
[2024-07-06 02:33] LABS: AST/SGOT < 10 U/L (15-37); BETA HYDROXYBUTYRATE > 4.50 mmol/L (0.02-0.27); Glucose Level 530 mg/dL (74-106)
[2024-07-06] MEDS: INSULIN REGULAR, HUMAN 100 UNIT in NA CHLORIDE 0.9% 100 ML IV SCH (03:00)
[2024-07-06] MEDS ORDERED: INSULIN REGULAR (HUMAN) 100 UNIT/ML ONE (03:03)
[2024-07-06] MEDS ORDERED: NA CHLORIDE 0.9% 100 ML ONE (03:04)
--- NOTE | 2024-07-06 03:09 | ER ---
Nurse's Notes [facility] Name: Yung Valdes Age: 59 yrs Sex: Male : 1965 Arrival Date: 07/06/2024 Time: 01:21 Bed 13 Private MD: Diagnosis: Diabetic ketoacidosis Presentation: 07/06 01:21 Chief complaint: EMS states: PT STATES HE FELL CAN'T REMEMBER WHEN. EMS FOUND HIM ON jj7 THE FLOOR WITH A LAC TO HEAD. FINGER STICK WAS HIGH. PT WAS ABLE TO AMBULATE OUTSIDE INTO THE BACK OF THE TRUCK WITH ASSISTANCE. Coronavirus screen: At this time, the client does not indicate any symptoms associated with coronavirus-19. Ebola Screen: No symptoms or risks identified at this time. Initial Sepsis Screen: Does the patient meet any 2 criteria? HR > 90 bpm. Yes Does the patient have a suspected source of infection? No. Patient's initial sepsis screen is negative. Risk Assessment: Do you want to hurt yourself or someone else? Patient reports no desire to harm self or others. Onset of symptoms was July 06, 2024. Care prior to arrival: Medication(s) given: Normal saline infusion, 700ML IV initiated. 18 GA, in the right antecubital area. 01:21 Method Of Arrival: EMS: [facility] 01:21 Acuity: GAVI 3 jj7 Triage Assessment: 01:41 General: Appears in no apparent distress. uncomfortable, slender, malnourished, jj7 Behavior is calm, cooperative, appropriate for age. Pain: Denies pain. Neuro: No deficits noted. Reports a syncopal episode. Cardiovascular: TACHYCARDIA. Rhythm is. Historical: - Allergies: 01:41 PENICILLINS; jj7 - PMHx: 01:41 diabetes mellitus; jj7 - PSHx: 01:41 None; jj7 - Immunization history:: Adult Immunizations not up to date, Client reports having NOT received the Covid vaccine. - Infectious Disease History:: Denies. - Social history:: Smoking status: Patient denies any tobacco usage or history of. Patient uses alcohol, occasionally. street drugs, marijuana, AMPHETAMINES (SPEED). - Family history:: not pertinent. Screenin:00 [facility] ED Fall Risk Assessment (Adult) History of falling in the last 3 months, al5 including since admission Yes- physiologic fall (2 pts) Confusion or Disorientation No (0 pts) Intoxicated or Sedated No (0 pts) Impaired Gait No (0 pts) Mobility Assist Device Used No (0 pt) Altered Elimination No (0 pt) Score/Fall Risk Level 0 - 2 = Low Risk Oriented to surroundings, Maintained a safe environment, Hourly rounding (assess needs \T\ fall precautionary measures) done. Abuse screen: Denies threats or abuse. Denies injuries from another. Nutritional screening: No deficits noted. Tuberculosis screening: No symptoms or risk factors identified. Assessment: 02:00 General: Appears in no apparent distress. uncomfortable, ill, slender, malnourished, al5 Behavior is cooperative. Pain: Denies pain. Neuro: Level of Consciousness is awake, alert, obeys commands, Oriented to person, place, time, situation. Cardiovascular: Capillary refill < 3 seconds Patient's skin is warm and dry. Cardiovascular: Rhythm is sinus tachycardia. Respiratory: Airway is patent Respiratory effort is even, unlabored, Respiratory pattern is regular, symmetrical. GI: Abdomen is flat. : No signs and/or symptoms were reported regarding the genitourinary system. EENT: No signs and/or symptoms were reported regarding the EENT system. Derm: Skin is intact, Skin is pink, warm \T\ dry. normal, superficial nonbleeding laceration to back L side of scalp. Musculoskeletal: No signs and/or symptoms reported regarding the musculoskeletal system. 03:06 Reassessment: Patient appears in no apparent distress at this time. No changes from al5 previously documented assessment. Patient and/or family updated on plan of care and expected duration. Pain level reassessed. Patient is alert, oriented x 3, equal unlabored respirations, skin warm/dry/pink. 05:28 Reassessment: Patient appears in no apparent distress at this time. No changes from lg3 previously documented assessment. Patient and/or family updated on plan of care and expected duration. Pain level reassessed. Patient is alert, oriented x 3, equal unlabored respirations, skin warm/dry/pink. Vital Signs: 01:21 BP 151 / 97; Pulse 110; Resp 16; Temp 97.9; Pulse Ox 100% on R/A; Weight 49.9 kg; jj7 Height 5 ft. 10 in. ; Pain 0/10; 01:30 BP 165 / 100; Pulse 110; Resp 18; Pulse Ox 100% on R/A; al5 02:00 BP 160 / 102; Pulse 108; Resp 18; Pulse Ox 100% on R/A; al5 02:30 BP 170 / 108; Pulse 113; Resp 18; Pulse Ox 100% on R/A; al5 03:00 BP 160 / 96; Pulse 113; Resp 18; Pulse Ox 100% on R/A; al5 05:29 BP 141 / 83; Pulse 111; Resp 17 S; Pulse Ox 100% on R/A; lg3 01:21 Body Mass Index 15.78 (49.90 kg, 177.8 cm) jj7 01:21 Pain Scale: Adult j7 ED Course: 01:23 Patient arrived in ED. kmf 01:24 Matteo Cody MD is Attending Physician. rt 01:41 Triage completed. jj7 01:41 Arm band placed on right wrist. Patient placed in an exam room, on a stretcher. jj7 01:52 XRAY Chest (1 view) In Process Unspecified. EDMS 02:00 Patient has correct armband on for positive identification. Bed in low position. Call al5 light in reach. Side rails up X2. Provided Education on: plan of care. 02:00 No provider procedures requiring assistance completed. Maintain EMS IV. Dressing al5 intact. Good blood return noted. Site clean \T\ dry. Gauge \T\ site: 20G RAC. Flushed with 10 mL NS. 02:11 Qing Lamb, RENA is Primary Nurse. al5 03:08 Jered Mederos MD is Hospitalizing Provider. rt 03:41 CT Head C Spine In Process Unspecified. EDMS 05:28 UAM Sent. lg3 05:29 Assisted with urinal. Linen changed. lg3 05:29 Patient admitted, IV remains in place. lg3 Administered Medications: 01:58 Drug: NS 0.9% IV 2000 ml IV at 2000 ml once; to be given as a bolus over 60 minutes al5 Route: IV; Rate: 2000 ml; Site: right antecubital; 03:18 Follow up: Response: No adverse reaction; IV Status: Completed infusion; IV Intake: lg3 2000ml 03:00 Drug: Insulin Drip - (Insulin Regular Human IVP 100 units, NS 0.9% IV 100 ml) IV at lg3 calculated rate continuous; Standard concentration 1unit/ml; Dose for DKA is 0.1 units/kg/hr {Co-Signature: samson (Qing Lamb RN).} Route: IV; Rate: calculated rate; Site: right antecubital; 05:28 Follow up: IV Status: Infusion continued upon admission lg3 03:00 Drug: Insulin Regular Human IVP 5 units IVP once {Co-Signature: samson (Qing Lamb RN).} Route: IVP; Site: right antecubital; 05:28 Follow up: Response: No adverse reaction lg3 Medication: 02:00 VIS not applicable for this client. al5 Intake: 03:18 IV: 2000ml; Total: 2000ml. lg3 Outcome: 03:09 Decision to Hospitalize by Provider. rt 05:29 Admitted to ER Hold. Please see [facility] for further documentation. lg3 05:29 Condition: stable 05:29 Instructed on the need for admit, 05:30 Patient left the ED. lg3 13:44 Patient left the ED. jl7 Signatures: Dispatcher [employer] EDMS Amadou Clement RN RN jl7 Ora Marroquin RN RN mc3 Alicia Soler RN RN jj7 Matteo Cody MD MD rt Forrester, Kelsey [facility] Qing Lamb RN RN al5 Qing Lamb RN al5 Corrections: (The following items were deleted from the chart) 03:16 03:16 Insulin Drip - (Insulin Regular Human IVP 100 units, NS 0.9% IV 100 ml) IV at lg3 calculated rate in right antecubital lg3
--- NOTE | 2024-07-06 03:09 | EDPHYS ---
Physician Documentation [facility] Name: Yung Valdes Age: 59 yrs Sex: Male : 1965 Arrival Date: 07/06/2024 Time: 01:21 Bed 13 Private MD: ED Physician Matteo Cody HPI: 07/06 03:27 This 59 yrs old Male presents to ER via EMS with complaints of High Blood Sugar. rt 03:27 Patient presents to the ED with hyperglycemia, reportedly was found on the ground, does rt not recall the event surrounding the fall. Reports chills to me. Denies other acute complaints, symptoms are moderate in severity, no other aggravating alleviating factors.. Historical: - Allergies: :41 PENICILLINS; jj7 - PMHx: :41 diabetes mellitus; jj7 - PSHx: :41 None; jj7 - Immunization history:: Adult Immunizations not up to date, Client reports having NOT received the Covid vaccine. - Infectious Disease History:: Denies. - Social history:: Smoking status: Patient denies any tobacco usage or history of. Patient uses alcohol, occasionally. street drugs, marijuana, AMPHETAMINES (SPEED). - Family history:: not pertinent. ROS: 03:27 Cardiovascular: Negative for chest pain, palpitations, and edema, Respiratory: Negative rt for shortness of breath, cough, wheezing, and pleuritic chest pain, Abdomen/GI: Negative for abdominal pain, nausea, vomiting, diarrhea, and constipation, Skin: Negative for injury, rash, and discoloration, Neuro: Negative for headache, weakness, numbness, tingling, and seizure, 03:27 Constitutional: Positive for chills, Negative for fever, Exam: 03:27 Chest/axilla: Normal chest wall appearance and motion. Nontender with no deformity. rt No lesions are appreciated. Cardiovascular: Regular rate and rhythm with a normal S1 and S2. No gallops, murmurs, or rubs. Normal PMI, no JVD. No pulse deficits. Respiratory: Lungs have equal breath sounds bilaterally, clear to auscultation and percussion. No rales, rhonchi or wheezes noted. No increased work of breathing, no retractions or nasal flaring. Abdomen/GI: Soft, non-tender, with normal bowel sounds. No distension or tympany. No guarding or rebound. No evidence of tenderness throughout. Skin: Warm, dry with normal turgor. Normal color with no rashes, no lesions, and no evidence of cellulitis. MS/ Extremity: Pulses equal, no cyanosis. Neurovascular intact. Full, normal range of motion. 03:27 Constitutional: The patient appears Thin, chronically ill-appearing 03:27 ECG was reviewed by the Attending Physician. Vital Signs: 01:21 BP 151 / 97; Pulse 110; Resp 16; Temp 97.9; Pulse Ox 100% on R/A; Weight 49.9 kg; jj7 Height 5 ft. 10 in. ; Pain 0/10; 01:30 BP 165 / 100; Pulse 110; Resp 18; Pulse Ox 100% on R/A; al5 02:00 BP 160 / 102; Pulse 108; Resp 18; Pulse Ox 100% on R/A; al5 02:30 BP 170 / 108; Pulse 113; Resp 18; Pulse Ox 100% on R/A; al5 03:00 BP 160 / 96; Pulse 113; Resp 18; Pulse Ox 100% on R/A; al5 05:29 BP 141 / 83; Pulse 111; Resp 17 S; Pulse Ox 100% on R/A; lg3 01:21 Body Mass Index 15.78 (49.90 kg, 177.8 cm) j7 01:21 Pain Scale: Adult jj7 MDM: 01:25 Medical Screening Exam initiated rt 03:54 Differential diagnosis: DKA, hyperglycemia, dehydration. Data reviewed: vital signs, rt nurses notes, lab test result(s), EKG, radiologic studies. Consideration of Admission/Observation Patient was admitted/placed on observation. Management of patient was discussed with the following: Hospitalist: Agrees to admit. I considered the following discharge prescriptions or medication management in the emergency department Medications were administered in the Emergency Department. See MAR. Independent interpretation of the following test(s) in the Emergency Department X-Ray: My interpretation is No infiltrate seen on interpretation of x-ray images. Care significantly affected by the following chronic conditions: Diabetes. Counseling: I had a detailed discussion with the patient and/or guardian regarding the historical points, exam findings, and any diagnostic results supporting the discharge/admit diagnosis, lab results, radiology results, the need for further work-up and treatment in the hospital. Response to treatment: the patient's symptoms have mildly improved after treatment. ED course: Reevaluated patient's head, there is an abrasion, not amenable to primary repair. CT scan was ordered, I do not see any signs of intracranial hemorrhage, awaiting CT final read. 07/06 01:30 Order name: Basic Metabolic Panel; Complete Time: 02:36 rt 07/06 01:30 Order name: CBC with Diff; Complete Time: 02:32 rt 07/06 01:30 Order name: LFT's; Complete Time: 02:36 rt 07/06 01:30 Order name: Magnesium; Complete Time: 02:36 rt 07/06 01:30 Order name: Troponin HS; Complete Time: 02:36 rt 07/06 01:30 Order name: BHB; Complete Time: 02:36 rt 07/06 01:30 Order name: ABG: vbg; Complete Time: 02:32 rt 07/06 02:39 Order name: UAM rt 07/06 03:23 Order name: Urine Drug Screen EDMS 07/06 03:47 Order name: Urinalysis w/ reflexes EDMS 07/06 03:47 Order name: CBC with Automated Diff EDMS 07/06 03:47 Order name: CBC with Automated Diff EDMS 07/06 03:47 Order name: Comprehensive Metabolic Panel EDMS 07/06 03:47 Order name: Comprehensive Metabolic Panel EDMS 07/06 04:22 Order name: Glucose, Ancillary Testing; Complete Time: 05:26 EDMS 07/06 05:06 Order name: Glucose, Ancillary Testing; Complete Time: 05:26 EDMS 07/06 06:10 Order name: Glucose, Ancillary Testing EDMS 07/06 07:05 Order name: Glucose, Ancillary Testing EDMS 07/06 07:33 Order name: CBC with Automated Diff EDMS 07/06 07:52 Order name: Comprehensive Metabolic Panel EDMS 07/06 07:52 Order name: Phosphorus EDMS 07/06 07:52 Order name: Magnesium EDMS 07/06 08:05 Order name: Hemoglobin A1c EDMS 07/06 08:12 Order name: Glucose, Ancillary Testing EDMS 07/06 09:12 Order name: Glucose, Ancillary Testing EDMS 07/06 09:51 Order name: Glucose, Ancillary Testing EDMS 07/06 10:34 Order name: Glucose, Ancillary Testing EDMS 07/06 11:07 Order name: Basic Metabolic Panel EDMS 07/06 11:56 Order name: Glucose, Ancillary Testing EDMS 07/06 01:30 Order name: XRAY Chest (1 view) rt 07/06 03:23 Order name: CT Head C Spine rt 07/06 01:30 Order name: EKG; Complete Time: 01:30 rt 07/06 01:30 Order name: Cardiac monitoring; Complete Time: 02:11 rt 07/06 01:30 Order name: EKG - Nurse/Tech; Complete Time: 02:11 rt 07/06 01:30 Order name: IV Saline Lock; Complete Time: 01:53 rt 07/06 01:30 Order name: Labs collected and sent; Complete Time: :53 rt 07/06 01:30 Order name: O2 Per Protocol; Complete Time: :53 rt 07/06 01:30 Order name: O2 Sat Monitoring; Complete Time: 01:53 rt EC:27 Rate is 115 beats/min. Rhythm is regular, Sinus tachycardia with Unifocal PVCs. Right rt axis deviation noted. DC interval is normal. QRS interval is normal. QT interval is normal. No Q waves. No ST changes noted. Interpreted by me. Administered Medications: 01:58 Drug: NS 0.9% IV 2000 ml IV at 2000 ml once; to be given as a bolus over 60 minutes al5 Route: IV; Rate: 2000 ml; Site: right antecubital; 03:18 Follow up: Response: No adverse reaction; IV Status: Completed infusion; IV Intake: lg3 2000ml 03:00 Drug: Insulin Drip - (Insulin Regular Human IVP 100 units, NS 0.9% IV 100 ml) IV at lg3 calculated rate continuous; Standard concentration 1unit/ml; Dose for DKA is 0.1 units/kg/hr {Co-Signature: al5 (Qing Lamb RN).} Route: IV; Rate: calculated rate; Site: right antecubital; 05:28 Follow up: IV Status: Infusion continued upon admission lg3 03:00 Drug: Insulin Regular Human IVP 5 units IVP once {Co-Signature: al5 (Qing Lamb RN).} Route: IVP; Site: right antecubital; 05:28 Follow up: Response: No adverse reaction lg3 Disposition Summary: 07/06/24 03:09 Hospitalization Ordered Notes: Hospitalization Status: Inpatient Admission rt Provider: Jered Mederos rt Condition: Fair rt Problem: an acute exacerbation rt Symptoms: are unchanged rt Bed/Room Type: Standard rt Location: [facility] ER HOLD(07/06/24 04:10) km Room Assignment: ERHOLD-(07/06/24 04:10) [facility] Diagnosis - Diabetic ketoacidosis rt Forms: - Medication Reconciliation Form rt - SBAR form rt - Leadership Thank You Letter rt Critical care time excluding procedures: 03:54 Critical care time: Bedside Care: 30 minutes, Consultation: 5 minutes. Total time: 35 rt minutes Signatures: Dispatcher [employer] EDOra Ocampo RN RN lg3 Alicia Soler RN RN jj7 Matteo Cody MD MD rt Noemi Paiz kmf Qing Lamb RN RN al5 Qing Lamb RN al5 Corrections: (The following items were deleted from the chart) 01:30 01:30 Arterial Blood Gas+RC.LAB.BRZ ordered. EDMS EDMS 04:10 03:09 Telemetry/MedSurg (Inpatient) rt kmf 04:10 03:09 rt kmf
--- NOTE | 2024-07-06 03:19 | P.HP ---
Certification for Inpatient Patient admitted to: Inpatient With expected LOS: >2 Midnights Practitioner: I am a practitioner with admitting privileges, knowledge of patient current condition, hospital course, and medical plan of care. Services: Services provided to patient in accordance with Admission requirements found in Title 42 Section 412.3 of the Code of Federal Regulations Patient History Date of Service: 07/06/24 Reason for admission: DKA History of Present Illness: 59 yrs old Male with past medical history of diabetes, history of substance abuse with methamphetamine brought to ER with high blood sugar. Patient is a poor historian and most of the history is obtained from chart review and also talking to the ER physician. He was not feeling well today. And he passed out and call 911 because of high blood sugar. Denies any fever or chills. No nausea vomiting or diarrhea. No chest pain or shortness of breath. Patient was assessed in the ER and was found to be in DKA and is admitted for further management of diabetic ketoacidosis Allergies Penicillins Allergy (Unknown, Verified 04/08/24 03:30) Itching/Hives/Rash Home medications list reviewed: Yes Home Medications: Alcohol Antiseptic Pads [Alcohol Swabs] 1 each TP TID #100 unit 04/11/24 Blood Sugar Diagnostic [Blood Glucose Test Strip] 1 each MC TID #30 strip 04/11/24 Blood-Glucose Meter [Blood Glucose Monitoring] 1 each MC TID #1 kit 04/11/24 Glucerna Shake [Glucerna*] 237 ml PO BID #30 can 04/11/24 Insulin Detemir [Levemir Flexpen] 20 unit SQ DAILY #15 ml 04/11/24 Lancets 1 each MC TID #100 ea 04/11/24 Losartan Potassium [Cozaar*] 50 mg PO DAILY #30 tab 04/11/24 Pen Needle, Diabetic [Pen [place]] 1 each MC TID #1 box 04/11/24 Thiamine HCl [Vitamin B-1*] 100 mg PO DAILY #30 tab 04/11/24 - Past Medical/Surgical History Past Medical History: Reviewed- Non-Contributory -: DM Past Surgical History: Reviewed- Non-Contributory - Family History Family History: Reviewed- Non-Contributory - Social History Smoking Status: Current some day smoker Review of Systems is unable to be obtained Physical Examination - Vital Signs Temperature: 97.8 F Blood Pressure: 108/68 Pulse: 90 Respirations: 18 Pulse Ox (%): 94 - Physical Exam General: Cachectic, Disheveled, Mild distress HEENT: Atraumatic, Normocephalic Neck: Supple Respiratory: Normal air movement Cardiovascular: Regular rate/rhythm, Normal S1 S2 Capillary refill: <2 Seconds Gastrointestinal: Soft and benign, W/out hepatosplenomegaly Musculoskeletal: No clubbing, No swelling Integumentary: No rashes Neurological: Other (Sleepy but arousable , moves all the limbs ) Lymphatics: No axilla or inguinal lymphadenopathy - Studies Laboratory Data (last 24 hrs) 07/06/24 07/06/24 01:37 01:37 WBC 5.00 Hgb 11.8 L Hct 36.3 L Plt Count 463 H Sodium 131 L Potassium 4.8 BUN 23 H Creatinine 1.18 Glucose 530 H* Magnesium 1.9 Total Bilirubin 0.5 AST < 10 L ALT 21 Alkaline Phosphatase 150 H Assessment and Plan - Plan Diabetic ketoacidosis Admit to ICU Started on insulin drip Anion gap monitored ABG findings noted IV hydration aggressively Oxygen supplementation Will monitor BMP every 4 hours Accu-Chek q. hourly Anion gap high Electrolytes monitor and replace accordingly ABG noted Hyponatremia Aggressive hydration along with insulin drip Will monitor BMP every 4 hours Monitor under telemetry Dehydration Acute kidney injury Renal parameters monitored IV hydration Electrolytes monitor and replace accordingly H/o Substance abuse Patient has a history of methamphetamine use Will get a UDS GI/DVT prophylaxis Advanced directive full code Discharge Plan: Home Plan to discharge in: 48 Hours - Advance Directives Does patient have a Living Will: No Does patient have a Durable POA for Healthcare: No - Code Status/Comfort Care Code Status: Full Code Time Spent Managing Pts Care (In Minutes): 48
[2024-07-06] MEDS ORDERED: ACETAMINOPHEN 325 MG TABLET PO PRN (03:42)
[2024-07-06] MEDS ORDERED: ONDANSETRON 4 MG/2 ML VIAL IV PRN (03:42)
[2024-07-06] MEDS ORDERED: SODIUM CHLORIDE 0.9% 10ML INJ IV PRN (03:46)
[2024-07-06] MEDS: NACHLORIDE 0.45% 1,000 ML with POTASSIUM CL 20 MEQ IV SCH (04:00)
[2024-07-06] MEDS: D5 0.45 NS 1,000 ML IV SCH (04:00)
--- NOTE | 2024-07-06 04:14 | RAD REPORT ---
CT HEAD AND CERVICAL SPINE WITHOUT CONTRAST INDICATION: Trauma. COMPARISON: CT head 08/30/2023 TECHNIQUE: CT images of the head and cervical spine were obtained without contrast. Multiplanar refor mats were provided. Dose lowering techniques such as automated exposure control, iterative reconstruction, and mA and/or kV adjustment for patient size was utilized for this examination. FINDINGS: CT HEAD: PARENCHYMA: No acute arterial territory infarct or hemorrhage. No mass effect or midline shift. VENTRICLES: Normal in size for patient's age. EXTRA-AXIAL: No focal collection. Patent basilar cisterns. ORBITS: Unremarkable. BONES: No acute finding. PARANASAL SINUSES: Well aerated. Mild mucosal thickening of right sphenoid sinus. MASTOIDS/MIDDLE EARS: Clear. SOFT TISSUES: No acute findings. OTHER: None. CT CERVICAL SPINE: ALIGNMENT: Normal lordosis of the cervical spine. No spondylolisthesis. BONES: No acute fractures. No compression deformity. Status post previous cartilage of C5-T1 posterio r elements. Incidental finding of the bony island in right lateral mass of C1. SPONDYLOSIS: Mild multilevel degenerative changes of the spine with disc space narrowing, marginal os teophytosis, and uncovertebral hypertrophy. POSTERIOR FOSSA: Unremarkable. SOFT TISSUES: Unremarkable. LUNG APICES: Clear. OTHER: None. IMPRESSION: 1. No acute intracranial abnormality. 2. No CT evidence of acute traumatic injury of cervical spine. Electronically signed by: Nataliia Salcedo MD 07/06/2024 04:07 AM [facility] Due to temporary technical issues with the PACS/[employer] reporting system, reports are being sara d by the in-house radiologist without review as a courtesy to ensure prompt reporting the interpreting radiologist is fully responsible for the content of the report. Transcribed Date/Time: 07/06/2024 4:14 AM
[2024-07-06] MEDS ORDERED: GLUCAGON 1 MG/VIAL IM PRN (04:21)
[2024-07-06] MEDS ORDERED: D50W 25 GM/50 ML SYRINGE IV PRN (04:21)
[2024-07-06] MEDS ORDERED: D10W 125 ML IV PRN (04:33)
--- NOTE | 2024-07-06 05:25 | RAD REPORT ---
XR CHEST 1 VIEW CLINICAL INDICATION: Hyperglycemia COMPARISON: Chest radiograph 05/21/2024 FINDINGS: SUPPORT DEVICES: None LUNGS/PLEURAL SPACES: The lungs are hyperinflated, otherwise clear. No pleural effusion. No pneumotho rax. HEART/MEDIASTINUM: Within normal range. BONES/UPPER ABDOMEN/SOFT TISSUES: No acute findings. IMPRESSION: No radiographic evidence of active pulmonary process. Electronically signed by: Nataliia Salcedo MD 07/06/2024 05:11 AM [facility] Due to temporary technical issues with the PACS/[employer] reporting system, reports are being sara d by the in-house radiologist without review as a courtesy to ensure prompt reporting the interpreting radiologist is fully responsible for the content of the report. Transcribed Date/Time: 07/06/2024 5:25 AM
[2024-07-06 05:39] VITALS: O2SAT 100
[2024-07-06 05:49] VITALS: BMI 15.7
[2024-07-06 05:59] LABS: Specific Gravity 1.028 (1.005-1.030); Sqamous Epithelial None Seen /HPF (None Seen); Urine Bacteria None Seen /HPF (<20); Urine Bilirubin NEGATIVE (Negative); Urine Blood Negative (Negative); Urine Clarity Clear (Clear); Urine Color Colorless (Yellow); Urine Culture Reflex Order NOT NEEDED; Urine Glucose 4+ (Over) (Negative); Urine Ketones 3+ (Negative); Urine Micro Reflex YN NO BILL MICROSCOPIC; Urine Mucus Slight /HPF (None Seen); Urine Nitrite NEGATIVE (Negative); Urine Protein NEGATIVE (Negative); Urine RBC <5 /HPF (None Seen); Urine Urobilinogen Normal (Normal); Urine WBC <5 /HPF (<5)
[2024-07-06 06:33] LABS: Barbiturates NEGATIVE (NEGATIVE); Benzodiazepines NEGATIVE (NEGATIVE); Cocaine NEGATIVE (NEGATIVE); METHAMPHETAM POSITIVE (NEGATIVE); Methadone NEGATIVE (NEGATIVE); Opiates NEGATIVE (NEGATIVE); Phencyclidine NEGATIVE (NEGATIVE); THC Cannibis POSITIVE (NEGATIVE)
[2024-07-06 07:27] LABS: Absolute Basophils 0.1 K/uL (0-0.5); Absolute Lymphocytes (CBC) 1.8 K/uL (0.7-4.9); Absolute Monocytes 0.4 K/uL (0.1-1.3); Eosinophils % 0.2 % (0-4.4); Lymphocytes % 29.4 % (15.3-44.8); MCHC 33.5 g/dL (32.0-36.0); MCV 89.7 fL (80-100); MPV 7.3 fL (7.6-11.3); Monocytes % 6.1 % (3.3-12.3); Neutrophils % 63.3 % (41.7-73.7); Nucleated Red Blood Cells % 0.1 % (0-0); Platelets 453 thou/uL (152-406); RBC Red Blood Cell Count 3.67 M/uL (4.33-5.43); Red Cell Distribution Width 13.7 % (12.1-15.2)
[2024-07-06] MEDS: FLU (Fluarix Triv) TS24-25(6MOS UP)/PF 45 MCG/0.5 ML Syringe IM ONE (07:30)
[2024-07-06 07:46] LABS: ALT/SGPT 19 U/L (16-61); Albumin 2.9 g/dL (3.4-5.0); Albumin/Globulin Ratio 0.9 (1.1-1.8); Alkaline Phosphatase 139 U/L (45-117); Anion Gap 11.9 mEq/L (5.0-15.0); BUN Blood Urea Nitrogen 22 mg/dL (7-18); Bicarbonate 27 mEq/L (21-32); Bilirubin Total 0.4 mg/dL (0.2-1.0); Globulin 3.1 g/dL (2.3-3.5); Glomerular Filtration Rate 76 ml/min (=/>90); Glucose Level 238 mg/dL (74-106); Phosphorus 2.8 mg/dL (2.5-4.9); Potassium 3.9 mEq/L (3.5-5.1); Sodium Level 137 mEq/L (136-145)
[2024-07-06] MEDS ORDERED: D5 0.45 NS 1,000 ML IV ONE (07:47)
[2024-07-06 07:51] LABS: AST/SGOT < 10 U/L (15-37)
[2024-07-06 08:14] VITALS: TEMP 97.9
[2024-07-06] MEDS ORDERED: PANTOPRAZOLE 40 MG INJ ONE (08:54)
[2024-07-06] MEDS ORDERED: ENOXAPARIN 40 MG/0.4 ML SQ ONE (08:55)
[2024-07-06] MEDS: ENOXAPARIN 40 MG/0.4 ML SQ SCH (09:00)
[2024-07-06] MEDS: PANTOPRAZOLE 40 MG INJ IVP SCH (09:00)
[2024-07-06] MEDS: INSULIN GLARGINE 100 UNIT/ML SQ ONE (11:02)
[2024-07-06] MEDS: NA CHLORIDE 0.9% 500 ML IV SCH (11:03)
[2024-07-06] MEDS ORDERED: INSULIN GLARGINE 100 UNIT/ML SQ ONE (11:30)
[2024-07-06] MEDS ORDERED: NA CHLORIDE 0.9% 500 ML ONE (11:30)
[2024-07-06 12:10] VITALS: BP 155/94
--- NOTE | 2024-07-06 13:39 | EKG ---
Test Date: 2024-07-06 Test Time: 02:08:07 Court Supervisor: CLAUDIA MEASUREMENT RESULTS: Intervals: Rate: 115 CO: 134 QRSD: 98 QT: 374 QTc: 517 [place]: P: 81 CO: 134 QRS: 90 T: 71 INTERPRETIVE STATEMENTS: Sinus tachycardia with frequent and consecutive premature ventricular complexes Rightward axis Anteroseptal infarct, age undetermined Abnormal ECG Compared to ECG 04/07/2024 21:27:30 Ventricular premature complex(es) now present Right-axis deviation now present Myocardial infarct finding still present Electronically Signed On 07-06-24 13:37:40 DIRECTOR PROCESS IMPROVEMENT by Tin Thomas
== END 2024-07-06 13:46 | disposition home or self-care (01) | DRG 638 ==
LOC: ER 01:21 → ERHOLD 03:42
PROVIDERS: ADMIT Family Medicine; ATTEND Hospitalist
PROC: 4A033R1 Measurement of Arterial Saturation, Peripheral, Percutaneous Approach (ICD-10-PCS; principal; 2024-07-06)
DX: E11.00 Type 2 diabetes mellitus with hyperosmolarity without nonketotic hyperglycemic-hyperosmolar coma (NKHHC) (principal); E87.1 Hypo-osmolality and hyponatremia; R64 Cachexia; Z68.1 Body mass index [BMI] 19.9 or less, adult; N17.9 Acute kidney failure, unspecified; E86.0 Dehydration; F17.200 Nicotine dependence, unspecified, uncomplicated; Z88.0 Allergy status to penicillin; Z79.4 Long term (current) use of insulin; Z79.899 Other long term (current) drug therapy
CPT/HCPCS: 36415; 36600; 70450; 71045; 72125; 80048; 80053; 80076; 80307; 81001; 82010; 82805; 82947; 83036; 83735; 84100; 84484; 85025; 93005; 96361; 96365; 96366; 99285; J1650; J2470; J3480; J7030; J7040; J7799

== ENCOUNTER 2024-07-30 13:05 | Emergency (ER) | payer OTHER ==
[2024-07-30] MEDS ORDERED: NA CHLORIDE 0.9% 500 ML ONE (13:38)
--- NOTE | 2024-07-30 14:04 | RAD REPORT ---
EXAM: Chest Single View HISTORY: 59 years Male hypotension COMPARISON: None. FINDINGS: LUNGS/PLEURA: The lungs are clear. No pleural effusions or pneumothorax. No pulmonary edema. CARDIAC/MEDIASTINUM: The cardiac silhouette is within normal limits. UPPER ABDOMEN: No significant abnormality. BONES: No acute abnormality. Right clavicle plate and screw LINES/TUBES/OTHER: N/A IMPRESSION: No evidence of acute cardiopulmonary disease.
[2024-07-30 14:39] LABS: Absolute Monocytes 0.2 K/uL (0.1-1.3); Absolute Neutrophil 3.1 K/uL (1.8-8.0); Basophils % 0.6 % (0-1.3); Eosinophils % 0.2 % (0-4.4); Hematocrit 40.8 % (39.6-49.0); Hemoglobin 13.5 g/dL (13.6-17.9); Lymphocytes % 23.9 % (15.3-44.8); MCH 29.7 pg (27.0-35.0); MCHC 33.1 g/dL (32.0-36.0); MCV 89.8 fL (80-100); MPV 6.9 fL (7.6-11.3); Monocytes % 5.4 % (3.3-12.3); Neutrophils % 69.9 % (41.7-73.7); Nucleated Red Blood Cells % 0.1 % (0-0); Platelets 348 thou/uL (152-406); RBC Red Blood Cell Count 4.54 M/uL (4.33-5.43); Red Cell Distribution Width 14.5 % (12.1-15.2)
[2024-07-30 14:46] LABS: PTT, Activated Partial Thromb 28.7 SECONDS (24.3-36.9); Protime INR 0.96
[2024-07-30 14:58] LABS: Albumin 2.9 g/dL (3.4-5.0); Albumin/Globulin Ratio 0.9 (1.1-1.8); Anion Gap 5.7 mEq/L (5.0-15.0); Bilirubin Total 0.7 mg/dL (0.2-1.0); Globulin 3.4 g/dL (2.3-3.5); Potassium 3.7 mEq/L (3.5-5.1); Protein, Total 6.3 g/dL (6.4-8.2)
[2024-07-30 15:24] LABS: Specific Gravity 1.012 (1.005-1.030); Sqamous Epithelial None Seen /HPF (None Seen); Urine Bacteria None Seen /HPF (<20); Urine Bilirubin NEGATIVE (Negative); Urine Blood Negative (Negative); Urine Clarity Extremely Turbid (Clear); Urine Color Light-Yellow (Yellow); Urine Crystals Unidentified Few /HPF (None Seen); Urine Culture Reflex Order REFLEXED; Urine Glucose 4+ (Over) (Negative); Urine Ketones NEGATIVE (Negative); Urine Microscopic Reflex YN ORDER UMIC; Urine Mucus Slight /HPF (None Seen); Urine Nitrite NEGATIVE (Negative); Urine Protein TRACE (Negative); Urine RBC <5 /HPF (None Seen); Urine Urobilinogen Normal (Normal); Urine WBC >50 /HPF (<5); Urine WBC Clump Occasional /HPF (None Seen); Urine Yeast (Budding) Occasional /HPF (None Seen); Urine pH 7.5 (5.0-7.0)
--- NOTE | 2024-07-30 15:54 | RAD REPORT ---
EXAMINATION: CT ABDOMEN AND PELVIS WITH CONTRAST CLINICAL INDICATION: Male, 59 years old.cachectic, abnl lfts TECHNIQUE: CT abdomen and pelvis was performed, after the administration of IV contrast, as per [facility] protocol. Axial, sagittal and coronal reconstructions were obtained. One or more of the following dose reduction techniques were used: Automated exposure control, adjustment of the mA and/o r kV according to patient size, and/or iterative reconstruction. Unless otherwise specified, incidental findings do not require dedicated imaging follow-up. [id number]. COMPARISON: No prior exam. FINDINGS: LOWER CHEST: No acute process identified.No significant pericardial effusion. UPPER GI: Distended stomach but otherwise unremarkable. LIVER: No significant focal abnormality. GALLBLADDER/BILE DUCTS: No biliary ductal dilatation.? PANCREAS: Atrophy but no acute findings. SPLEEN: Unremarkable. ADRENALS: No adrenal masses. KIDNEYS AND URETERS: No hydronephrosis.Cystic mass at the lower pole right kidney with solid componen t measuring approximately 3 x 3.7 x 2.7 cm.No evidence of macroscopic fat.No renal calculi. ABDOMINAL AORTA AND OTHER VESSELS: Moderate atherosclerotic changes without aortic aneurysm. PERITONEUM: No abnormal free fluid. No free air. LYMPH NODES: No pathologic lymphadenopathy. ABDOMINAL WALL: Lack of abdominal wall fat and possible anasarca. SMALL BOWEL/COLON: Small bowel has normal course and caliber. No colonic wall thickening or pericolon ic inflammatory changes.Nonvisualized appendix but no secondary signs of acute appendicitis. Moderate formed stool burden. URINARY BLADDER: Circumferential bladder wall thickening which could reflect cystitis. Correlate with urinalysis. REPRODUCTIVE ORGANS: No pathologic process. MUSCULOSKELETAL: No acute or suspicious osseous abnormality. ADDITIONAL FINDINGS: None. IMPRESSION: No acute findings within the abdomen or pelvis. Nonspecific bladder wall thickening. Correlate with urinalysis to exclude cystitis. Cystic and solid mass at the lower pole right kidney may represent renal cell carcinoma. No macroscop ic fat. Recommend urologic referral.
--- NOTE | 2024-07-30 16:13 | RAD REPORT ---
EXAMINATION: Ultrasound of the liver - Abdomen Exam Limited CLINICAL HISTORY: weight loss, abnl lfts COMPARISON: Prior films compared to CT Abdomen study dated 07/30/2024 FINDINGS: Liver: Visualized portions of the liver demonstrate normal echogenicity with no suspicious findings.N o suspicious masses. Patent portal vein. Gallbladder: Normal. Bile ducts: No intrahepatic biliary ductal dilatation. Common bile duct measures 3 mm. Fluid: No ascites. Spleen: Normal size. IMPRESSION: Unremarkable ultrasound of the liver.
--- NOTE | 2024-07-30 16:29 | ER ---
Nurse's Notes [facility] Name: Yung Valdes Age: 59 yrs Sex: Male : 1965 Arrival Date: 07/30/2024 Time: 13:05 Bed 2 Private MD: Diagnosis: Muscle weakness (generalized);Cachexia;UTI/ Urinary tract infection, site not specified Presentation: 07/30 13:15 Chief complaint: EMS states: toned out for lift assist as patient had been in the [facility] bathtub for 2 days. States he was too weak to get out. A neighbor came and found him and called EMS. He has had some recent diarrhea over the past two weeks. 20 g LAC and administered 1L NS. States he has no money for food and is "starving to ". Coronavirus screen: Vaccine status: Patient reports being unvaccinated. Ebola Screen: No symptoms or risks identified at this time. Initial Sepsis Screen: Does the patient meet any 2 criteria? No. Patient's initial sepsis screen is negative. Does the patient have a suspected source of infection? No. Patient's initial sepsis screen is negative. Risk Assessment: Do you want to hurt yourself or someone else? Patient reports no desire to harm self or others. Onset of symptoms is unknown. 13:15 Method Of Arrival: EMS: [place] [id number] 13:15 Acuity: GAVI 3 la1 Triage Assessment: 13:19 General: Appears in no apparent distress. slender, emaciated, Behavior is calm, me1 cooperative, appropriate for age. Pain: Denies pain. EENT: No signs and/or symptoms were reported regarding the EENT system. Neuro: Level of Consciousness is awake, alert, obeys commands, Oriented to person, place, time, situation, Appropriate for age. Cardiovascular: Patient's skin is warm and dry. Respiratory: Airway is patent Respiratory effort is even, unlabored, Respiratory pattern is regular, symmetrical. GI: Reports diarrhea, intermittently for the past the few weeks. : No signs and/or symptoms were reported regarding the genitourinary system. Derm: Skin with poor turgor Skin is pink, warm \\T\\ dry. Musculoskeletal: Reports generalized weakness. Historical: - Allergies: 13:19 PENICILLINS; me1 - PMHx: 13:19 diabetes mellitus; me1 13:19 testicular cancer (Unknown); me1 - PSHx: 13:19 removal of testicle/cancer; me1 - Immunization history:: Adult Immunizations unknown. - Infectious Disease History:: Denies. - Family history:: not pertinent. - Social history:: Smoking status: Patient denies any tobacco usage or history of. - Hospitalizations: : No recent hospitalization is reported. Screenin:21 [facility] ED Fall Risk Assessment (Adult) History of falling in the last 3 months, la1 including since admission No falls in past 3 months (0 pts) Confusion or Disorientation No (0 pts) Intoxicated or Sedated No (0 pts) Impaired Gait Yes (1 pt) Mobility Assist Device Used No (0 pt) Altered Elimination No (0 pt) Score/Fall Risk Level 0 - 2 = Low Risk Maintained a safe environment, Provided non-skid footwear, Hourly rounding (assess needs \\T\\ fall precautionary measures) done. Abuse screen: Denies threats or abuse. Nutritional screening: No deficits noted. Tuberculosis screening: No symptoms or risk factors identified. Assessment: 13:21 Reassessment: See triage assessment. me1 15:41 Reassessment: Patient appears in no apparent distress at this time. Patient and/or jb4 family updated on plan of care and expected duration. Pain level reassessed. Patient is alert, oriented x 3, equal unlabored respirations, skin warm/dry/pink. 17:00 Reassessment: Patient appears in no apparent distress at this time. Patient and/or jb4 family updated on plan of care and expected duration. Pain level reassessed. Patient is alert, oriented x 3, equal unlabored respirations, skin warm/dry/pink. Vital Signs: 13:15 BP 131 / 95; Pulse 91; Resp 17; Temp 98.1; Pulse Ox 100% on R/A; Weight 45.36 kg; me1 Height 5 ft. 9 in. ; Pain 0/10; 14:05 BP 132 / 96; Pulse 83; Resp 18; Pulse Ox 100% on R/A; ld1 15:15 BP 159 / 114; Pulse 86; Resp 16; Pulse Ox 97% on R/A; jb4 17:00 BP 135 / 98; Pulse 87; Resp 16; Pulse Ox 100% ; jb4 13:15 Body Mass Index 14.77 (45.36 kg, 175.26 cm) me1 13:15 Pain Scale: Adult me1 ED Course: 13:13 Patient arrived in ED. rn 13:13 Ilia Gannon MD is Attending Physician. rn 13:19 Triage completed. me1 13:19 Arm band placed on Patient placed in an exam room. me1 13:21 Patient has correct armband on for positive identification. Bed in low position. Call me1 light in reach. Side rails up X2. Provided Education on: POC. Verbalized understanding.. Client placed on continuous cardiac and pulse oximetry monitoring. NIBP monitoring applied. Pulse ox on. NIBP on. 13:21 No provider procedures requiring assistance completed. Maintain EMS IV. Dressing me1 intact. Good blood return noted. Site clean \\T\\ dry. Gauge \\T\\ site: 20g LAC. Flushed with 10 mL NS. 13:29 Chest Single View XRAY In Process Unspecified. EDMS 14:04 Jyotsna Mo, RN is Primary Nurse. ld1 15:39 CT Abd/Pelvis - IV Contrast Only In Process Unspecified. EDMS 16:09 US Abdomen Limited In Process Unspecified. EDMS 17:00 IV discontinued, intact, bleeding controlled, No redness/swelling at site. Pressure jb4 dressing applied. Administered Medications: 13:40 Drug: NS 0.9% IV 500 ml 500 ml IV at 1 bolus once; to be given as a bolus over 30 me1 minutes Volume: 500 ml; Route: IV; Rate: 1 bolus; Site: left antecubital; Medication: 13:21 VIS not applicable for this client. me1 Outcome: 16:29 Discharge ordered by . rn 17:34 Discharged to to [facility] in wheelchair to wait for ride home jb4 17:34 Condition: stable 17:34 Discharge instructions given to Instructed on discharge instructions, follow up and referral plans. medication usage, Demonstrated understanding of instructions, follow-up care, medications, Prescriptions given X 1, 17:35 Patient left the ED. jb4 Signatures: Dispatcher [employer] EDMS Ilia Gannon MD MD rn Bryson, James, RN RN jb4 Jyotsna Mo RN RN ld1 Emilee Mckinney RN RN me1 Corrections: (The following items were deleted from the chart) 13:20 13:19 PMHx: testicular cancer (diabetes mellitus ); me1 me1
--- NOTE | 2024-07-30 16:29 | EDPHYS ---
Physician Documentation [facility] Name: Yung Valdes Age: 59 yrs Sex: Male : 1965 Arrival Date: 07/30/2024 Time: 13:05 Bed 2 Private MD: ED Physician Ilia Gannon HPI: 07/30 13:16 This 59 yrs old Male presents to ER via Unassigned with complaints of weakness. 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 Patient reports due to financial constraints he is unable to obtain food or eat. Patient reports ongoing weight loss. Has a history of prostate cancer but reports is cancer free and had surgery years ago. Denies any vomiting or diarrhea. Patient states just cannot get food and has no energy. Patient reports "starving to ".. Severity of symptoms: At their worst the symptoms were moderate in the emergency department the symptoms are unchanged. It is unknown whether or not the patient has had similar symptoms in the past. Historical: - Allergies: 13:19 PENICILLINS; me1 - PMHx: 13:19 diabetes mellitus; me1 13:19 testicular cancer (Unknown); me1 - PSHx: 13:19 removal of testicle/cancer; me1 - Immunization history:: Adult Immunizations unknown. - Infectious Disease History:: Denies. - Family history:: not pertinent. - Social history:: Smoking status: Patient denies any tobacco usage or history of. - Hospitalizations: : No recent hospitalization is reported. ROS: 13:16 Constitutional: Positive for weight loss Cardiovascular: Negative for chest pain, rn palpitations, and edema, Respiratory: Negative for shortness of breath, cough, wheezing, and pleuritic chest pain, Abdomen/GI: Negative for abdominal pain, nausea, vomiting, diarrhea, and constipation, MS/Extremity: Negative for injury and deformity, Skin: Negative for injury, rash, and discoloration, Neuro: Positive for generalized weakness Exam: 13:16 Constitutional: Emaciated male, no acute distress Head/Face: Normocephalic, rn atraumatic. ENT: Dry mucous membranes Cardiovascular: Regular rate and rhythm. No pulse deficits. Respiratory: No increased work of breathing, no retractions or nasal flaring. Abdomen/GI: Scaphoid abdomen. No tenderness. No rebound or guarding MS/ Extremity: Pulses equal, no cyanosis Neuro: Awake and alert, GCS 15, oriented to person, place, time, and situation. Cranial nerves II-XII grossly intact. Motor strength 4/5 in all extremities. Sensory grossly intact. Cerebellar exam normal. 18:04 ECG was reviewed by the Attending Physician. rn Vital Signs: 13:15 BP 131 / 95; Pulse 91; Resp 17; Temp 98.1; Pulse Ox 100% on R/A; Weight 45.36 kg; me1 Height 5 ft. 9 in. ; Pain 0/10; 14:05 BP 132 / 96; Pulse 83; Resp 18; Pulse Ox 100% on R/A; ld1 15:15 BP 159 / 114; Pulse 86; Resp 16; Pulse Ox 97% on R/A; jb4 17:00 BP 135 / 98; Pulse 87; Resp 16; Pulse Ox 100% ; jb4 13:15 Body Mass Index 14.77 (45.36 kg, 175.26 cm) me1 13:15 Pain Scale: Adult me1 MDM: 13:13 Medical Screening Exam initiated rn 16:27 Differential Diagnosis Cachexia, malnourishment, dehydration. Data reviewed: vital rn signs, nurses notes, lab test result(s), radiologic studies, CT scan, and as a result, I will discharge patient. Counseling: I had a detailed discussion with the patient and/or guardian regarding the historical points, exam findings, and any diagnostic results supporting the discharge/admit diagnosis, lab results, radiology results, the need for outpatient follow up, to return to the emergency department if symptoms worsen or persist or if there are any questions or concerns that arise at home. Special discussion: I discussed with the patient/guardian in detail that at this point there is no indication for admission to the hospital. It is understood, however, that if the symptoms persist or worsen the patient needs to return immediately for re-evaluation. ED course: Labs showed abnormal liver function tests, ultrasound without acute findings as well as CT abdomen pelvis without acute findings. Questionable urinary tract infection. Went back to discuss results with patient especially renal cyst that needs follow-up, patient reports has known about that cyst for 4 years and has had testing before. Patient given food here and states feels better, plans to call for a ride, wants to go home. I have personally reviewed all of the results, including but not limited to blood tests and imaging deemed necessary to safely discharge this patient at this time. All results given to and printed out for patient. I personally went over all the results with the patient and answered all questions. Patient will follow-up with PCP and or specialist as discussed. Return precautions given and understood.. 07/30 13:13 Order name: Blood Culture Adult (2) rn 07/30 13:13 Order name: CBC with Diff; Complete Time: 15:18 rn 07/30 13:13 Order name: CMP; Complete Time: 15:18 rn 07/30 13:13 Order name: Lactate w/ 2H reflex if indic.; Complete Time: 15:18 rn 07/30 13:13 Order name: Protime (+inr); Complete Time: 15:18 rn 07/30 13:13 Order name: Ptt, Activated; Complete Time: 15:18 rn 07/30 13:13 Order name: Urinalysis w/ reflexes; Complete Time: 16:22 rn 07/30 13:36 Order name: Glucose, Ancillary Testing; Complete Time: 14:10 EDME 07/30 15:28 Order name: Urine Culture EDME 07/30 13:13 Order name: Chest Single View XRAY; Complete Time: 14:10 rn 07/30 15:19 Order name: CT Abd/Pelvis - IV Contrast Only; Complete Time: 16:22 rn 07/30 15:19 Order name: US Abdomen Limited; Complete Time: 16:22 rn 07/30 13:13 Order name: EKG; Complete Time: 13:17 rn 07/30 13:13 Order name: Accucheck; Complete Time: 13:25 rn 07/30 13:13 Order name: Cardiac monitoring; Complete Time: 13:33 rn 07/30 13:13 Order name: EKG - Nurse/Tech; Complete Time: 13:33 rn 07/30 13:13 Order name: IV Saline Lock - Large Bore; Complete Time: 13: rn 07/30 13:13 Order name: Labs collected and sent; Complete Time: 13: rn 07/30 13:13 Order name: O2 Per Protocol; Complete Time: 13: rn 07/30 13:13 Order name: O2 Sat Monitoring; Complete Time: : rn 07/30 13:13 Order name: Vital Signs; Complete Time: 13: rn 07/30 13:13 Order name: PO challenge; Complete Time: 14:04 rn EC:04 Rate is 89 beats/min. Rhythm is regular. QRS [place] is Normal. PA interval is normal. QRS rn interval is normal. QT interval is normal. No Q waves. T waves are Normal. No ST changes noted. Clinical impression: NSR w/ Non-specific ST/T Changes. Interpreted by me. Reviewed by me. Administered Medications: 13:40 Drug: NS 0.9% IV 500 ml 500 ml IV at 1 bolus once; to be given as a bolus over 30 me1 minutes Volume: 500 ml; Route: IV; Rate: 1 bolus; Site: left antecubital; Disposition Summary: 07/30/24 16:29 Discharge Ordered Notes: Location: Home rn Problem: new rn Symptoms: have improved rn Condition: Stable rn Diagnosis - Muscle weakness (generalized) rn - Cachexia rn - UTI/ Urinary tract infection, site not specified rn Followup: rn - With: Private Physician - When: As needed - Reason: Recheck today's complaints, Re-evaluation by your physician Discharge Instructions: - Discharge Summary Sheet rn - Urinary Tract Infection, Adult rn - Weakness rn Forms: - Medication Reconciliation Form rn - Antibiotic pharmacy grad intern - Prescription Opioid Use rn - Patient Portal Instructions rn - Leadership Thank You Letter rn Prescriptions: - Cipro 500 mg Oral Tablet - take 1 tablet ORAL route every 12 hours for 7 days; 14 tablet; Refills: 0, rn Product Selection Permitted Signatures: Dispatcher [employer] Ilia Guidry MD MD rn Eddleman, Michelle RN RN me1 Corrections: (The following items were deleted from the chart) 13:20 13:19 PMHx: testicular cancer (diabetes mellitus ); me1 me1
[2024-07-30 17:39] VITALS: TEMP 98.1
[2024-07-30 17:42] VITALS: BP 135/98; O2SAT 100
--- NOTE | 2024-07-31 12:13 | EKG ---
Test Date: 2024-07-30 Test Time: 13:29:30 Ore Feeder: MEASUREMENT RESULTS: Intervals: Rate: 89 NM: 158 QRSD: 94 QT: 384 QTc: 467 [place]: P: 83 NM: 158 QRS: 84 T: 86 INTERPRETIVE STATEMENTS: Normal sinus rhythm Low voltage QRS Septal infarct, age undetermined Abnormal ECG Compared to ECG 07/06/2024 02:08:07 Low QRS voltage now present Sinus tachycardia no longer present Ventricular premature complex(es) no longer present Right-axis deviation no longer present Myocardial infarct finding still present Electronically Signed On 07-31-24 12:11:06 [employer] by Kvng Parar
== END 2024-07-30 17:35 | disposition home or self-care (01) ==
LOC: ER 13:05
DX: M62.81 Muscle weakness (generalized) (principal); R64 Cachexia; N39.0 Urinary tract infection, site not specified; E11.9 Type 2 diabetes mellitus without complications; Z85.47 Personal history of malignant neoplasm of testis
CPT/HCPCS: 87040; 87088; 85025; 81001; 87086; 36415; 85610; 82947; 83605; 85730; 80053; 74177; 71045; 76705; Q9967; J7040; 87205; 93005; 99284